=== PATIENT | male | born 1945 | race Hispanic/Latino ===

== ENCOUNTER 2019-01-10 11:57 | Observation (INO) | payer MEDICARE ==
[~2019-01-10] VITALS: Ht 154.4 cm; Wt 72.6 kg
--- OUTSIDE RECORDS SUMMARY | 2019-01-10 12:00 | XMS REPORT | Clinical Summary ---
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 Active clopidogrel (PLAVIX) 75 Take 75 mg by 0 mg tablet mouth daily. Active Problems Problem Noted Date Peripheral arterial disease 07/11/2016 Ulcer of left great toe due to diabetes mellitus 04/04/2016 Cellulitis of right lower extremity 03/19/2016 Neuropathy 03/19/2016 Diabetes mellitus HTN (hypertension) Wound eschar of foot Chronic renal failure HLD (hyperlipidemia) Anemia BPH (benign prostatic hyperplasia) Acid reflux Immunizations Name Dates Previously Given Next Due FLUCELVAX QUAD PF (0.5mL 04/30/2016 syringe) Pneumococcal Conjugate 04/30/2016 13-Valent Family History Medical History Relation Name Comments Diabetes Brother No Known Problems Father Diabetes Mother Diabetes Sister Relation Name Status Comments Brother Father Mother Sister Social History Date Tobacco Use Types Packs/Day Years Used Quit: 2000 Former Smoker 1 40 Alcohol Use Drinks/Week oz/Week Comments Yes 6 Cans of 3.6 18/week or more beer Sex Assigned at Date Recorded Not on file Industry Job Start Date Occupation Not on file Not on file Not on file Travel End Travel History Travel Start No recent travel history available. Last Filed Vital Signs Not on file Plan of Treatment Health Maintenance Due Date Last Done Comments DIABETIC RETINAL EYE EXAM 1945 SHINGLES VACCINES (#1) 12/13/1993 PNEUMOCOCCAL 12/13/2008 POLYSACCHARIDE VACCINE AGE 65 AND OVER DIABETIC FOOT EXAM 03/20/2017 03/20/2016, 03/20/2016 65+ PNEUMOCOCCAL VACCINE 04/30/2017 04/30/2016 (2 of 2 - PPSV23) INFLUENZA VACCINE 03/12/2019 04/30/2016 COLON CANCER SCREENING 04/05/2026 04/05/2016 Implants Device Identifier Shelf Expiration Date Model / Serial / Lot Implanted Type Area Manufactur er 06/12/2018 [id number] / / [id number] Elite Single-Vial Spy Kit, Accessorie N/A: N/A NOVADAQ [id number] - Implanted: Qty: 1 on 07/04/2016 by Suri Chan MD onal 03/11/2018 [id number] / / [id number] Device Vasclr Clsr Baln Cath 10ml Cardiovasc N/A: N/A CARDINAL Lkng Syr 6fr 7fr Mynxgrip [facility] [id number] Implants Implanted: 03/26/2016 (Quantity not on file) 04/25/2019 [id number] / / Catheter Garment Fitter Balloon Advance 14lp Surgical N/A: N/A COOK 2.5mm X 20cm X 170cm - [id number] Implants; PERIPHERAL Implanted: Qty: 1 on 07/04/2016 by Expanders; Suri Chan MD Extenders; ON Surgical Wires 12/09/2018 [id number] / / Catheter Garment Fitter Balloon Advance 14lp Surgical N/A: N/A COOK 2.5mm X 6cm X 170cm - [id number] Implants; PERIPHERAL Implanted: Qty: 1 on 07/04/2016 by Expanders; Suri Chan MD Extenders; ON Surgical Wires 11/29/2016 [id number] / / [id number] Stent Zilver Drug Eluted 6fr 7 X Surgical N/A: N/A COOK 100mm .035in - [id number] Stents PERIPHERAL Implanted: Qty: 1 on 03/26/2016 by Suri Chan MD ON 12/04/2016 [id number] / / [id number] Stent Zilver Drug Eluted 6fr 6 X Surgical N/A: N/A COOK 80mm 0.035in - [id number] Stents PERIPHERAL Implanted: Qty: 1 on 03/26/2016 by Suri Chan MD ON 12/20/2016 [id number] / / [id number] Stent Zilver Drug Eluted 6fr 7 X Surgical N/A: N/A COOK 40mm .035in - [id number] Stents PERIPHERAL Implanted: Qty: 1 on 03/26/2016 by Suri Chan MD ON 11/22/2016 [id number] / / [id number] Stent Zilver Drug Eluted 6fr 6 X Surgical N/A: N/A COOK 100mm .035in - [id number] Stents PERIPHERAL Implanted: 07/04/2016 (Quantity not INTERVENTI on file) ON 11/22/2016 [id number] / / [id number] Stent Zilver Drug Eluted 6fr 6 X Surgical N/A: N/A COOK 100mm .035in - [id number] Stents PERIPHERAL Implanted: 07/04/2016 (Quantity not INTERVENTI on file) ON 10/18/2020 [id number] / / [id number] Patch Vasclr Perph 0.8x8cm Vascular N/A: N/A CONSTANTINO Vascu-Guard - [id number] Graft BIOSCIENCE Implanted: 03/26/2016 (Quantity not on file) 08/11/2017 [id number] / / [id number] Matrix Wnd 2x2in Meshed 2lyr Strl - Vascular N/A: N/A INTEGRA [id number] Graft LIFESCIENC Implanted: Qty: 1 on 03/30/2016 by Edgar Echols DPM 10/18/2020 [id number] / / [id number] Patch Vasclr Perph 0.8x8cm Vascular N/A: N/A CONSTANTINO Vascu-Guard - [id number] Graft BIOSCIENCE Implanted: 07/11/2016 (Quantity not on file) Results Not on fileafter 01/09/2018 Insurance Type Payer Benefit Subscriber ID Effective Phone Address Plan / Dates Group [facility] MEDICARE AARP xxxxxxxxx [id number] MEDICARE resent COMPLETE [facility] Advance Directives Patient has advance care planning documents on file. For more information, terese e contact: Derrek Leung [address] [place] [address]
--- OUTSIDE RECORDS SUMMARY | 2019-01-10 12:01 | XMS REPORT | Summary of Care ---
Author Author [facility] Organization [facility] Address Unknown Phone Unavailable Encounter [facility] [place]) [id number] Date(s): 10/04/17 - 10/05/17 [facility] [address], [address] [place], [place] [id number]- [phone] Vital Signs No data available for this section Problem List Condition Effective Dates Status Health Status Informant Anemia of chronic Active renal failure(Confirmed) Physical Active debility(Confirmed) Benign hypertension Active with chronic kidney disease, stage IV(Confirmed) Chronic kidney Active disease stage 4(Confirmed) Closed fracture of Active right hip(Confirmed) Diabetic ulcer of Active right foot(Confirmed) History of fracture Active of femur(Confirmed) S/P ORIF (open Active reduction internal fixation) fracture(Confirmed) Status post right Active hip replacement(Confirme d) Hypercholesterolemia Active (Confirmed) MRSA of the 10/05/11 Active sputum(Confirmed)1, 2 Nocturia(Confirmed) Active Peripheral vascular Active disease(Confirmed) Thrombocytopenia(Con Active firmed) Screening for Active prostate cancer(Confirmed) Screening for Active diabetic retinopathy(Confirme d) Type 2 diabetes Active mellitus with stage 4 chronic kidney disease, without long-term current use of insulin(Confirmed) Unsteady Active gait(Confirmed) Urinary Active incontinence(Confirm ed) Vitamin D Active deficiency(Confirmed ) 1MRSA of the sputum, 10/05/11 2Problem added by Discern Expert. Allergies, Adverse Reactions, Alerts Substance Reaction Severity Status NKDA Active Medications atorvastatin 40 mg oral tablet 40 mg=1 tab, PO, Bedtime, # 90 tab, 0 Refill(s), Pharmacy: [id number] Start Date: 10/04/17 Stop Date: 01/02/18 Status: Ordered clopidogrel 75 mg oral tablet 75 mg=1 tab, PO, Daily, # 90 tab, 0 Refill(s), Pharmacy: [id number] Start Date: 10/04/17 Stop Date: 01/02/18 Status: Ordered Results No data available for this section Immunizations Given and Recorded Vaccine Date Status Refusal Reason Hx influenza vaccine-unspecified1 03/19/16 Recorded pneumococcal 23-valent vaccine2 09/15/15 Given pneumococcal 23-valent vaccine 09/30/11 Given influenza virus vaccine, inactivated 09/30/11 Given Not Given Vaccine Date Status Refusal Reason pneumococcal 23-valent vaccine 01/19/16 Not Given Patient Refuses 1Location History: At [facility] 2Result Comment: [id number] Procedures Procedure Date Related Diagnosis Body Site Status Comprehensive eye examination1 10/24/16 Completed Insertion of stent into femoral artery2 07/04/16 Completed Amputation great toe3 03/2016 Completed Endovascular insertion of stent4 03/2016 Completed Open reduction of fracture of femur with 01/19/16 Completed internal fixation5 Total replacement of right hip joint 08/01/15 Completed Screening colonoscopy 2014 Completed Appendectomy Completed 1no retinopathy (Murphy Alexandra OD) 2Zilver PTX drug-eluting periheral stent, right femoral artery [facility] 3Left foot ([facility]) 4Left leg ([facility]) 51. Hardware removal, right femur distal interlocking bolt. 2. Open reduction internal fixation, right periprosthetic femur fracture. Social History Social History Type Response Substance Abuse Use: None. Exercise Exercise duration: 45. Exercise frequency: 3-4 times/week. Exercise type: Walking.1 Employment/School Status: Retired. 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 Alcohol Past, Type Beer. Frequency: 1-2 times per week. Last use: over 6 beers a day. Smoking Status Former smoker; Type: Cigarettes; Previous treatment: None; Exposure to Tobacco Smoke None; Cigarette Smoking Last 365 Days No; Reg Smoking Cessation Counseling No; Tobacco use per day: 5; Stopped at age: 49; 2 entered on: 03/08/17 1Not at the moment due to recent hip surgery. 2Used to smoke 2 PPW. Quit 20 years ago. Assessment and Plan No data available for this section
--- OUTSIDE RECORDS SUMMARY | 2019-01-10 12:01 | XMS REPORT | Continuity of Care Document ---
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 Medical [facility] Anemia of chronic renal failure Active Problem 10/28/2018 [facility] Physical debility Active Problem 10/28/2018 [facility] Benign hypertension with chronic kidney disease, stage IV Active Problem 10/28/2018 [facility] Chronic kidney disease stage 4 Active Problem 10/28/2018 [facility] Closed fracture of right hip Active Problem 10/28/2018 [facility] Diabetic ulcer of right foot Active Problem 10/28/2018 [facility] History of fracture of femur Active Problem 10/28/2018 [facility] S/P ORIF fracture(<span [id number]</span>) Active Problem 10/28/2018 [facility] Status post right hip replacement Active Problem 10/28/2018 [facility] Hypercholesterolemia Active Problem 10/28/2018 [facility] Nocturia Active Problem 10/28/2018 [facility] Peripheral vascular disease Active Problem 10/28/2018 [facility] Thrombocytopenia Active Problem 10/28/2018 [facility] Screening for diabetic retinopathy Active Problem 10/28/2018 [facility] Type 2 diabetes mellitus with stage 4 chronic kidney disease, without long-term current use of insulin Active Problem 10/28/2018 [facility] Unsteady gait Active Problem 10/28/2018 [facility] Urinary incontinence Active Problem 10/28/2018 [facility] Vitamin D deficiency Active Problem 10/28/2018 [facility] Screening for prostate cancer Active Problem 01/11/2018 [facility] Diabetes mellitus Resolved Problem 01/28/2016 [facility] Hypertension Resolved Problem 01/28/2016 [facility] Renal disease Resolved Problem 01/28/2016 [facility] Type 2 diabetes mellitus with renal manifestations, controlled Active Problem 01/28/2016 [facility] UNSP FRACTURE OF UNSP FEMUR, INIT ENCNTR Active [facility] Medications Medication Details Route Status Patient Instructions Ordering Provider Order Date Source tamsulosin 0.4 mg oral capsule 0.4 mg=1 cap, PO, Daily, # 90 cap, 1 Refill(s), Pharmacy: [facility]/pharmacy #[id number] Active 04/02/2018 [facility] clopidogrel 75 mg oral tablet 75 mg=1 tab, PO, Daily, # 90 tab, 0 Refill(s), [id number] atorvastatin 40 mg oral tablet 40 mg=1 tab, PO, Bedtime, # 90 tab, 0 Refill(s), Pharmacy: [facility]/pharmacy #[id number] Active 10/04/2017 [facility] enoxaparin 40 mg/0.4 mL subcutaneous solution 40 mg=0.4 mL, SUB-Q, Daily, X 7 day, # 3 mL, 0 Refill(s), other Active 01/25/2016 [facility] Reglan 10 mg, 2 mL, Route: IVP, Drug form: INJ, Q6H, Dosing Weight 68.182, kg, Start date: 01/24/16 18:00:00 CDT, Duration: 30 day, Stop date: 02/23/16 15:00:00 CDTNotes: (Same as: Reglan) No Longer Active 01/24/2016 [facility] Menthol 0.0044 MG/MG / Zinc Oxide 0.2 MG/MG Topical Ointment [Calmoseptine Ointment] 1 appl, Route: TOP, Q12H, Drug form: OINT, Start date: 01/24/16 13:30:00 CDT, Duration: 30 day, Stop date: 02/23/16 9:00:00 CDTNotes: (Same as: Calmoseptine) No Longer Active 01/24/2016 [facility] metoprolol tartrate 25 mg oral tablet 12.5 mg=0.5 tab, PO, Q12H, 0 Refill(s) Active 01/24/2016 [facility] Menthol 0.0044 MG/MG / Zinc Oxide 0.2 MG/MG Topical Ointment [Calmoseptine Ointment] 1 appl, TOP, Q12H, 0 Refill(s) Active 01/24/2016 [facility] Docusate Sodium 100 MG Oral Capsule [Colace] 100 mg=1 cap, PO, BID, 0 Refill(s) Active 01/24/2016 [facility] acetaminophen 325 mg oral tablet 650 mg=2 tab, PO, Q4H, PRN Pain 1-3/Temp > 100.4 F, 0 Refill(s) Active 01/24/2016 [facility] Acetaminophen 325 MG / Hydrocodone Bitartrate 5 MG Oral Tablet 2 tab, PO, Q4H, PRN Pain Score 7-10, 0 Refill(s) Active 01/24/2016 [facility] tamsulosin 0.4 mg oral capsule 0.8 mg=2 cap, PO, Daily, 0 Refill(s) Active 01/24/2016 [facility] prochlorperazine 10 mg oral tablet 10 mg=1 tab, PO, TID, PRN as needed for nausea/vomiting, X 10 day, # 30 tab, 0 Refill(s) Active 01/24/2016 [facility] sodium chloride 0.9% INJ 250 mL 250 mL, Rate: outbound call center representative for use with blood product administration, Dosing Weight 68.182, kg, Route: IV, Total Volume: 250, Start Date: 01/24/16 12:31:00 CDT, Duration: 1 doses or times, Stop date: 01/25/16 12:30:00 CDT, Replace Every: 24 hr No Longer Active 01/24/2016 [facility] Lopressor 12.5 mg, 1 tab, Route: PO, Drug form: TAB, Q12H, Dosing Weight 68.182, kg, Start date: 01/24/16 0:00:00 CDT, Duration: 30 day, Stop date: 02/22/16 21:00:00 CDTNotes: (Same as: Lopressor) 12.5mg=1/4 X 50 mg tab. No Longer Active 01/24/2016 [facility] metoprolol tartrate 12.5 mg, 1 tab, Route: PO, Drug form: TAB, Q12H, Dosing Weight 68.182, kg, Start date: 01/23/16 12:00:00 CDT, Duration: 30 day, Stop date: 02/22/16 9:00:00 CDTNotes: (Same as: Lopressor) 12.5mg=1/4 X 50 mg tab. Inactive 01/23/2016 [facility] remove patch 1 patch, Route: TOP, Drug form: ERFILM, ONCE, Start date: 01/23/16 11:07:00 CDT, Stop date: 01/23/16 11:07:00 CDT Inactive 01/23/2016 [facility] remove patch 1 patch, Route: TOP, Drug form: ERFILM, Q72H, Start date: 01/23/16 11:00:00 CDT, Duration: 30 day, Stop date: 02/19/16 11:00:00 CDTNotes: Remove old patch before application of new patch. Inactive 01/23/2016 [facility] Reglan 10 mg, 2 mL, Route: IVP, Drug form: INJ, Q6H, Dosing Weight 68.182, kg, PRN Nausea & Vomiting, Start date: 01/21/16 17:10:00 CDT, Duration: 30 day, Stop date: 02/20/16 17:09:00 CDTNotes: (Same as: Reglan) No Longer Active 01/21/2016 [facility] Prochlorperazine 5 mg, 1 mL, Route: IV, Drug form: INJ, Q6H, Dosing Weight 68.182, kg, PRN Nausea & Vomiting, Start date: 01/21/16 10:48:00 CDT, Duration: 30 day, Stop date: 02/20/16 10:47:00 CDT, ..Notes: (Same as: Compazine) No Longer Active 01/21/2016 [facility] sodium chloride 0.9% INJ 250 mL 250 mL, Rate: outbound call center representative for use with blood product administration, Dosing Weight 68.182, kg, Route: IV, Total Volume: 250, Start Date: 01/21/16 8:08:00 CDT, Duration: 30 day, Stop date: 02/20/16 8:07:00 CDT, Replace Every: 24 hr No Longer Active 01/21/2016 [facility] Zofran 4 mg, 2 mL, Route: IVP, Drug form: INJ, ONCE, Dosing Weight 68.182, kg, Start date: 01/20/16 10:37:00 CDT, Stop date: 01/20/16 10:37:00 CDTNotes: (Same as: Zofran) MEDICATION WASTE Product Size: 4 mg Product Wasted: ___ mg Inactive 01/20/2016 [facility] Sodium Chloride 0.154 MEQ/ML Injectable Solution 500 mL, 500 ml/hr, Infuse Over: 1 hr, Route: IV, 500, Drug form: INJ, ONCE, Priority: STAT, Dosing Weight 68.182 kg, Start date: 01/20/16 9:00:00 CDT, Duration: 1 doses or times, Stop date: 01/20/16 9:00:00 CDT Inactive 01/20/2016 [facility] 72 HR Scopolamine 0.0139 MG/HR Transdermal Patch 1 patch, Route: TOP, Drug Form: ERFILM, Dosing Weight 68.182, kg, Q72H, Start date: 01/20/16 6:00:00 CDT, Duration: 30 day, Stop date: 02/16/16 11:00:00 CDTNotes: Change patch every 72 hours (Same as: Transderm-Scop) No Longer Active 01/20/2016 [facility] Ancef + sodium chloride 0.9% INJ 100 mL 2 gm, Route: IVPB, Q8H, Dosing Weight 68.182, kg, Start date: 01/19/16 21:00:00 CDT, Duration: 1 day, Stop date: 01/20/16 13:00:00 CDTNotes: (Same As: Ancef, Kefzol) MEDICATION WASTE Product Size: 1000 mg Product Wasted: ___ mg No Longer Active 01/20/2016 [facility] Cefazolin 2 gm, Route: IVP, ONCE, Dosing Weight 68.182, kg, Start date: 01/19/16 15:15:00 CDT, Stop date: 01/19/16 15:15:00 CDT Inactive 01/19/2016 [facility] Losartan 25 mg, PO, Daily, 0 Refill(s) Active 01/19/2016 [facility] pneumococcal capsular polysaccharide type 1 vaccine / pneumococcal capsular polysaccharide type 10A vaccine / pneumococcal capsular polysaccharide type 11A vaccine / pneumococcal capsular polysaccharide type 12F vaccine / pneumococcal capsular polysacchar 0.5 mL, Route: IM, Drug Form: INJ, Daily, Start date: 01/19/16 9:00:00 CDT, Duration: 1 doses or times, Stop date: 01/19/16 9:00:00 CDTNotes: (Same as: Pneumovax 23) Refrigerate Inactive 01/19/2016 [facility] Calcium Gluconate 2,000 mg, 20 mL, Route: IVPB, ONCE, Dosing Weight 68.182, kg, Start date: 01/19/16 8:36:00 CDT, Stop date: 01/19/16 8:36:00 CDTNotes: WASTE: F/P - Sink; E - Municipal Trash Bin Inactive 01/19/2016 [facility] Kayexalate 15 gm, 60 mL, Route: PO, Drug form: SUSP, ONCE, Dosing Weight 68.182, kg, Start date: 01/19/16 8:36:00 CDT, Stop date: 01/19/16 8:36:00 CDTNotes: (sodium polystyrene sulfonate 15 gm/60 ml CARROLL) Shake well before use. (Same as: Kayexalate, SPS) Inactive 01/19/2016 [facility] sodium chloride 0.9% INJ 250 mL 250 mL, Rate: outbound call center representative for use with blood product administration, Dosing Weight 68.182, kg, Route: IV, Total Volume: 250, Start Date: 01/19/16 8:35:00 CDT, Duration: 30 day, Stop date: 02/18/16 8:34:00 CDT, Replace Every: 24 hr No Longer Active 01/19/2016 [facility] sodium chloride 0.9% 1000 ml INJ 1,000 mL 1,000 mL, Rate: 100 ml/hr, Infuse over: 10 hr, Route: IV, Dosing Weight 68.182 kg, Total Volume: 1,000, Start date: 01/19/16 8:34:00 CDT, Stop date: 02/18/16 8:33:00 CDT No Longer Active 01/19/2016 [facility] atorvastatin 40 mg, 1 tab, Route: PO, Drug form: TAB, Bedtime, Dosing Weight 60.455, kg, Start date: 01/18/16 21:00:00 CDT, Duration: 30 day, Stop date: 02/16/16 21:00:00 CDTNotes: (Same as: Lipitor) No Longer Active 01/19/2016 [facility] tamsulosin 0.8 mg, 2 cap, Route: PO, Drug form: CAP, Daily, Dosing Weight 60.455, kg, Start date: 01/18/16 9:00:00 CDT, Stop date: 02/16/16 9:00:00 CDTNotes: (Same As: Flomax) "Do Not Crush" No Longer Active 01/18/2016 [facility] 24 HR Nifedipine 60 MG Extended Release Tablet 60 mg, 1 tab, Route: PO, Drug form: ERTAB, Daily, Dosing Weight 60.455, kg, Start date: 01/18/16 9:00:00 CDT, Duration: 30 day, Stop date: 02/16/16 9:00:00 CDTNotes: (Same as: Adalat CC, Procardia XL) Give on empty stomach. Take 1 hour before or 2 hours after meal; "Avoid grapefruit and grapefruit juice". Do not crush No Longer Active 01/18/2016 [facility] Folic Acid 1 mg, 1 tab, Route: PO, Drug form: TAB, Daily, Dosing Weight 60.455, kg, Start date: 01/18/16 9:00:00 CDT, Duration: 30 day, Stop date: 02/16/16 9:00:00 CDTNotes: (Same as: Folvite) No Longer Active 01/18/2016 [facility] sennosides, SENIOR CARE 17.2 mg, 2 tab, Route: PO, Drug Form: TAB, Dosing Weight 60.455, kg, Daily, Start date: 01/18/16 9:00:00 CDT, Duration: 30 day, Stop date: 02/16/16 9:00:00 CDTNotes: (Same as: Senokot) Inactive 01/18/2016 [facility] Docusate Sodium 100 MG Oral Capsule [Colace] 100 mg, 1 cap, Route: PO, Drug form: CAP, BID, Dosing Weight 60.455, kg, Start date: 01/18/16 9:00:00 CDT, Duration: 30 day, Stop date: 02/16/16 17:00:00 CDTNotes: (Same as: Colace) (Do Not Crush) No Longer Active 01/18/2016 [facility] heparin 5,000 unit, 1 mL, Route: SUB-Q, Drug form: INJ, Q8H, Dosing Weight 60.455, kg, Start date: 01/18/16 8:00:00 CDT, Duration: 30 day, Stop date: 02/17/16 0:00:00 CDTNotes: porcine heparin No Longer Active 01/18/2016 [facility] Hydralazine 5 mg, 0.25 mL, Route: IV, Drug form: INJ, Q4H, Dosing Weight 60.455, kg, PRN Elevated BP, Start date: 01/18/16 7:10:00 CDT, Duration: 30 day, Stop date: 02/17/16 7:09:00 CDT, Systolic Blood pressure gre ater than 160 mmHgNotes: (Same as: Apresoline) Push over 5 minutes No Longer Active 01/18/2016 [facility] Insulin regular 5 unit, 0.05 mL, Route: SUB-Q, Drug form: SOLN, TID-Before Meals, Dosing Weight 60.455, kg, PRN Blood Glucose Results, Start date: 01/18/16 6:59:00 CDT, Duration: 30 day, Stop date: 02/17/16 6:58:00 CDTNotes: (Same as: Humulin R) Roll in palms of hands gently; Do not shake vigorously. "single patient use only" (Restricted to patients requiring a dose > 60 units) WASTE: F/P - Black; E - Municipal Trash Bin Stable for 28 days at room temperature Expires in days from Date No Longer Active 01/18/2016 [facility] Glucagon 1 mg, Route: IM, Drug form: PDR/INJ, PRN, Dosing Weight 60.455, kg, PRN Blood Glucose Results, Start date: 01/18/16 6:59:00 CDT, Duration: 30 day, Stop date: 02/17/16 6:58:00 CDT No Longer Active 01/18/2016 [facility] Dextrose 50% Syringe 12.5 gm, 25 mL, Route: IVP, Drug Form: INJ, Dosing Weight 60.455, kg, PRN, PRN Blood Glucose Results, Start date: 01/18/16 6:59:00 CDT, Duration: 30 day, Stop date: 02/17/16 6:58:00 CDT No Longer Active 01/18/2016 [facility] Acetaminophen 650 mg, 2 tab, Route: PO, Drug form: TAB, Q4H, Dosing Weight 60.455, kg, PRN Pain 1-3/Temp > 100.4 F, Start date: 01/18/16 6:31:00 CDT, Duration: 30 day, Stop date: 02/17/16 6:30:00 CDTNotes: Do not exceed 4 gm/day. (Same as: Tylenol) No Longer Active 01/18/2016 [facility] Acetaminophen 325 MG / Hydrocodone Bitartrate 5 MG Oral Tablet 1 tab, Route: PO, Drug Form: TAB, Dosing Weight 60.455, kg, Q4H, PRN Pain Score 4-6, Start date: 01/18/16 6:31:00 CDT, Duration: 30 day, Stop date: 02/17/16 6:30:00 CDTNotes: (Same as: Gunlock 325/5) Do not exceed 4gm/day of acetaminophen. No Longer Active 01/18/2016 [facility] Morphine 2 mg, 1 mL, Route: IVP, Drug form: INJ, Q4H, Dosing Weight 60.455, kg, PRN Pain Score 7-10, Start date: 01/18/16 6:31:00 CDT, Duration: 30 day, Stop date: 02/17/16 6:30:00 CDTNotes: (Same as:MORPhine Sulfate) No Longer Active 01/18/2016 [facility] Ondansetron 4 mg, 2 mL, Route: IVP, Drug form: INJ, Q6H, Dosing Weight 60.455, kg, PRN Nausea & Vomiting, Start date: 01/18/16 6:31:00 CDT, Duration: 30 day, Stop date: 02/17/16 6:30:00 CDTNotes: (Same as: Zofran) MEDICATION WASTE Product Size: 4 mg Product Wasted: _0__ mg No Longer Active 01/18/2016 [facility] Sodium Chloride 0.154 MEQ/ML Injectable Solution 1,000 mL, 1,000 ml/hr, Infuse Over: 1 hr, Route: IV, 1,000, Drug form: INJ, ONCE, Priority: STAT, Dosing Weight 60.455 kg, Start date: 01/18/16 4:53:00 CDT, Duration: 1 doses or times, Stop date: 01/18/16 4:53:00 CDT Inactive 01/18/2016 [facility] Allergies, Adverse Reactions, Alerts Substance Category Reaction Severity Reaction type Status Date Reported Comments Source Immunizations Immunization Date Given Site Status Last Updated Comments Source Hx influenza vaccine-unspecified<sup>1</sup> 03/19/2016 completed [place] Location History: At [facility] pneumococcal 23-valent vaccine<sup>3</sup> 01/19/2016 Not Given [facility] pneumococcal 23-valent vaccine 01/19/2016 Not Given [facility] pneumococcal 23-valent vaccine<sup>2</sup> 09/15/2015 Left Deltoid completed [place] Result Comment: [id number] [facility] pneumococcal 23-valent vaccine<sup>1</sup> 09/15/2015 Left Deltoid completed [place] Result Comment: [id number] [facility] pneumococcal 23-valent vaccine 09/30/2011 Left Deltoid completed [facility] influenza virus vaccine, inactivated 09/30/2011 Right Deltoid completed [facility] Results Order Name Results Value Reference Range Date Interpretation Comments Source CHEM PANEL eGFR 28 mL/min/1.73m2 01/25/2016 Result Comment: The eGFR is calculated using the CKD-EPI formula. In most young, healthy individuals the eGFR will be >90 mL/min/1.73m2. The eGFR declines with age. An eGFR of 60-89 may be normal in some populations, particularly the elderly, for whom the CKD-EPI formula has not been extensively validated. Use of the eGFR is not recommended in the following populations: Individuals with unstable creatinine concentrations, including patients and those with serious co-morbid conditions. Patients with extremes in muscle mass or diet. The data above are obtained from the National Kidney Disease Education Program (NKDEP) which additionally recommends that when the eGFR is used in patients with extremes of body mass index for purposes of drug dosing, the eGFR should be multiplied by the estimated BMI. [facility] CHEM PANEL Sodium Lvl 140 meq/L 135 - 145 01/25/2016 [facility] CHEM PANEL Potassium Lvl 3.1 meq/L 3.5 - 5.1 01/25/2016 [facility] CHEM PANEL Glucose Lvl 121 mg/dL 70 - 99 01/25/2016 [facility] CHEM PANEL Creatinine Lvl 2.26 mg/dL 0.50 - 1.40 01/25/2016 [facility] CHEM PANEL BUN 43 mg/dL 7 - 22 01/25/2016 [facility] CHEM PANEL Chloride Lvl 115 meq/L 95 - 109 01/25/2016 [facility] CHEM PANEL Calcium Lvl 8.0 mg/dL 8.5 - 10.5 01/25/2016 [facility] CHEM PANEL CO2 15 meq/L 24 - 32 01/25/2016 [facility] CHEM PANEL AGAP 13.1 meq/L 10.0 - 20.0 01/25/2016 [facility] HEMATOLOGY PT 15.9 s 12.0 - 14.7 01/25/2016 [facility] HEMATOLOGY INR 1.24 0.85 - 1.17 01/25/2016 [facility] HEMATOLOGY PTT 39.9 s 22.9 - 35.8 01/25/2016 [facility] HEMATOLOGY MPV 7.0 fL 7.4 - 10.4 01/25/2016 [facility] HEMATOLOGY Hgb 8.3 g/dL 14.0 - 18.0 01/25/2016 [facility] HEMATOLOGY WBC 4.2 K/CMM 3.7 - 10.4 01/25/2016 [facility] HEMATOLOGY RBC 2.70 M/CMM 4.70 - 6.10 01/25/2016 [facility] HEMATOLOGY MCHC 32.9 g/dL 32.0 - 36.0 01/25/2016 [facility] HEMATOLOGY Platelet 166 K/CMM 133 - 450 01/25/2016 [facility] HEMATOLOGY Hct 25.1 % 42.0 - 54.0 01/25/2016 [facility] HEMATOLOGY MCV 93.0 fL 80.0 - 94.0 01/25/2016 [facility] HEMATOLOGY MCH 30.6 pg 27.0 - 31.0 01/25/2016 [facility] HEMATOLOGY RDW 15.5 % 11.5 - 14.5 01/25/2016 [facility] HEMATOLOGY Segs 59.0 % 45.0 - 75.0 01/25/2016 [facility] HEMATOLOGY Lymphocytes 21.3 % 20.0 - 40.0 01/25/2016 [facility] HEMATOLOGY Eosinophils # 0.1 K/CMM 0.0 - 0.5 01/25/2016 [facility] HEMATOLOGY Segs-Bands # 2.5 K/CMM 1.5 - 8.1 01/25/2016 [facility] HEMATOLOGY Lymphocytes # 0.9 K/CMM 1.0 - 5.5 01/25/2016 [facility] HEMATOLOGY Monocytes 17.1 % 2.0 - 12.0 01/25/2016 [facility] HEMATOLOGY Eosinophils 2.2 % 0.0 - 4.0 01/25/2016 [facility] HEMATOLOGY Basophils 0.4 % 0.0 - 1.0 01/25/2016 [facility] HEMATOLOGY Monocytes # 0.7 K/CMM 0.0 - 0.8 01/25/2016 [facility] BLOOD BANK RESULTS Antibody Scrn Negative (01/24/16 1:09 PM) 01/24/2016 [facility] BLOOD BANK RESULTS ABO/Rh O POS 01/24/2016 [facility] BLOOD BANK RESULTS RBC product Product available (01/24/16 12:31 PM) 01/24/2016 [facility] Abdomen AP DX Abdomen AP DX EXAM: XR ABDOMEN 1 VIEW DATE: 01/24/2016 1344 hours INDICATION: Abdominal distension ADDITIONAL INFORMATION: None. COMPARISON: CT chest, abdomen and pelvis without contrast 09/25/2011 TECHNIQUE: AP view of the abdomen. FINDINGS: Lines and tubes: None. Lower thorax: Hazy airspace opacities are identified in the lung bases. Bowel: Generalized moderate distention of the small and large bowel is identified. No abrupt change in bowel caliber concerning for obstruction is seen. Solid organs: No abnormal mass or organomegaly seen. No abnormal calcifications found. Bones: Numerous healed right-sided rib fractures are identified. A cephalomedullary huber and lateral plate with multiple interlocking screws are identified in the right femur. IMPRESSION: 1. Generalized moderate distention of the small and large bowel likely event sales representative of adynamic ileus. Recommend obtaining serial radiographs to monitor for resolution or progression. 2. Bibasilar subsegmental atelectasis. 01/24/2016 - - This report was dictated by a Novelty Maker/Fellow. I have personally reviewed the images as well as the Resident's interpretation and agree with the findings. Read by: Carlos Gerard MD Resident: Carlos Gerard MD Dictated Date/time: 01/24/16 14:05 Electronically Signed by: Julio C iLpscomb MD 01/24/16 16:32 FINAL REPORT [facility] ELECTROLYTES AGAP 15.5 meq/L 10.0 - 20.0 01/24/2016 [facility] ELECTROLYTES eGFR 29 mL/min/1.73m2 01/24/2016 Result Comment: The eGFR is calculated using the CKD-EPI formula. In most young, healthy individuals the eGFR will be >90 mL/min/1.73m2. The eGFR declines with age. An eGFR of 60-89 may be normal in some populations, particularly the elderly, for whom the CKD-EPI formula has not been extensively validated. Use of the eGFR is not recommended in the following populations: Individuals with unstable creatinine concentrations, including patients and those with serious co-morbid conditions. Patients with extremes in muscle mass or diet. The data above are obtained from the National Kidney Disease Education Program (NKDEP) which additionally recommends that when the eGFR is used in patients with extremes of body mass index for purposes of drug dosing, the eGFR should be multiplied by the estimated BMI. [facility] [facility] ELECTROLYTES Chloride Lvl 115 meq/L 95 - 109 01/24/2016 [facility] ELECTROLYTES Potassium Lvl 3.5 meq/L 3.5 - 5.1 01/24/2016 [facility] ELECTROLYTES Sodium Lvl 142 meq/L 135 - 145 01/24/2016 [facility] ELECTROLYTES Calcium Lvl 7.9 mg/dL 8.5 - 10.5 01/24/2016 [facility] ELECTROLYTES CO2 15 meq/L 24 - 32 01/24/2016 [facility] ELECTROLYTES BUN 43 mg/dL 7 - 22 01/24/2016 [facility] ELECTROLYTES Creatinine Lvl 2.20 mg/dL 0.50 - 1.40 01/24/2016 [facility] ELECTROLYTES Glucose Lvl 137 mg/dL 70 - 99 01/24/2016 [facility] HEMATOLOGY PTT 42.2 s 22.9 - 35.8 01/24/2016 [facility] HEMATOLOGY INR 1.21 0.85 - 1.17 01/24/2016 [facility] HEMATOLOGY PT 15.6 s 12.0 - 14.7 01/24/2016 [facility] HEMATOLOGY RBC 2.32 M/CMM 4.70 - 6.10 01/24/2016 [facility] HEMATOLOGY WBC 4.8 K/CMM 3.7 - 10.4 01/24/2016 [facility] HEMATOLOGY Hct 21.9 % 42.0 - 54.0 01/24/2016 [facility] HEMATOLOGY Hgb 7.5 g/dL 14.0 - 18.0 01/24/2016 [facility] HEMATOLOGY MCV 94.3 fL 80.0 - 94.0 01/24/2016 [facility] HEMATOLOGY MCH 32.5 pg 27.0 - 31.0 01/24/2016 [facility] HEMATOLOGY MCHC 34.5 g/dL 32.0 - 36.0 01/24/2016 [facility] HEMATOLOGY Platelet 164 K/CMM 133 - 450 01/24/2016 [facility] HEMATOLOGY RDW 16.4 % 11.5 - 14.5 01/24/2016 [facility] HEMATOLOGY MPV 7.2 fL 7.4 - 10.4 01/24/2016 [facility] HEMATOLOGY Monocytes # 0.6 K/CMM 0.0 - 0.8 01/24/2016 [facility] HEMATOLOGY Lymphocytes # 0.7 K/CMM 1.0 - 5.5 01/24/2016 [facility] HEMATOLOGY Eosinophils # 0.1 K/CMM 0.0 - 0.5 01/24/2016 [facility] HEMATOLOGY Segs-Bands # 3.4 K/CMM 1.5 - 8.1 01/24/2016 [facility] HEMATOLOGY Basophils 0.5 % 0.0 - 1.0 01/24/2016 [facility] HEMATOLOGY Segs 70.7 % 45.0 - 75.0 01/24/2016 [facility] HEMATOLOGY Monocytes 12.6 % 2.0 - 12.0 01/24/2016 [facility] HEMATOLOGY Lymphocytes 14.8 % 20.0 - 40.0 01/24/2016 [facility] HEMATOLOGY Eosinophils 1.4 % 0.0 - 4.0 01/24/2016 [facility] CHEM PANEL eGFR 29 mL/min/1.73m2 01/23/2016 Result Comment: The eGFR is calculated using the CKD-EPI formula. In most young, healthy individuals the eGFR will be >90 mL/min/1.73m2. The eGFR declines with age. An eGFR of 60-89 may be normal in some populations, particularly the elderly, for whom the CKD-EPI formula has not been extensively validated. Use of the eGFR is not recommended in the following populations: Individuals with unstable creatinine concentrations, including patients and those with serious co-morbid conditions. Patients with extremes in muscle mass or diet. The data above are obtained from the National Kidney Disease Education Program (NKDEP) which additionally recommends that when the eGFR is used in patients with extremes of body mass index for purposes of drug dosing, the eGFR should be multiplied by the estimated BMI. [facility] CHEM PANEL Calcium Lvl 8.0 mg/dL 8.5 - 10.5 01/23/2016 [facility] CHEM PANEL Glucose Lvl 145 mg/dL 70 - 99 01/23/2016 [facility] CHEM PANEL CO2 15 meq/L 24 - 32 01/23/2016 [facility] CHEM PANEL Sodium Lvl 145 meq/L 135 - 145 01/23/2016 [facility] CHEM PANEL Chloride Lvl 118 meq/L 95 - 109 01/23/2016 [facility] CHEM PANEL Potassium Lvl 3.5 meq/L 3.5 - 5.1 01/23/2016 [facility] CHEM PANEL BUN 42 mg/dL 7 - 22 01/23/2016 [facility] CHEM PANEL Creatinine Lvl 2.18 mg/dL 0.50 - 1.40 01/23/2016 [facility] CHEM PANEL AGAP 15.5 meq/L 10.0 - 20.0 01/23/2016 [facility] HEMATOLOGY D-Dimer 5.55 ug/mL FEU 01/23/2016 [facility] HEMATOLOGY Segs-Bands # 3.2 K/CMM 1.5 - 8.1 01/23/2016 [facility] HEMATOLOGY Lymphocytes # 1.0 K/CMM 1.0 - 5.5 01/23/2016 [facility] HEMATOLOGY Monocytes # 0.6 K/CMM 0.0 - 0.8 01/23/2016 [facility] HEMATOLOGY Eosinophils 0.8 % 0.0 - 4.0 01/23/2016 [facility] HEMATOLOGY Segs 66.5 % 45.0 - 75.0 01/23/2016 [facility] HEMATOLOGY Lymphocytes 20.5 % 20.0 - 40.0 01/23/2016 [facility] HEMATOLOGY Monocytes 11.8 % 2.0 - 12.0 01/23/2016 [facility] HEMATOLOGY Basophils 0.4 % 0.0 - 1.0 01/23/2016 [facility] HEMATOLOGY Platelet 116 K/CMM 133 - 450 01/23/2016 [facility] HEMATOLOGY RDW 15.9 % 11.5 - 14.5 01/23/2016 [facility] HEMATOLOGY Hgb 7.1 g/dL 14.0 - 18.0 01/23/2016 [facility] HEMATOLOGY Hct 21.3 % 42.0 - 54.0 01/23/2016 [facility] HEMATOLOGY MCV 90.9 fL 80.0 - 94.0 01/23/2016 [facility] HEMATOLOGY MPV 7.2 fL 7.4 - 10.4 01/23/2016 [facility] HEMATOLOGY MCH 30.3 pg 27.0 - 31.0 01/23/2016 [facility] HEMATOLOGY MCHC 33.3 g/dL 32.0 - 36.0 01/23/2016 [facility] HEMATOLOGY WBC 4.8 K/CMM 3.7 - 10.4 01/23/2016 [facility] HEMATOLOGY RBC 2.35 M/CMM 4.70 - 6.10 01/23/2016 [facility] CHEM PANEL Globulin 3.4 g/dL 2.0 - 4.0 01/22/2016 [facility] CHEM PANEL B/C Ratio 18 6 - 25 01/22/2016 [facility] CHEM PANEL A/G Ratio 0.7 0.7 - 1.6 01/22/2016 [facility] CHEM PANEL AST 30 unit/L 0 - 37 01/22/2016 [facility] CHEM PANEL Albumin Lvl 2.3 g/dL 3.5 - 5.0 01/22/2016 [facility] CHEM PANEL ALT 9 unit/L 0 - 65 01/22/2016 [facility] CHEM PANEL Total Protein 5.7 g/dL 6.4 - 8.4 01/22/2016 [facility] CHEM PANEL Bili Total 0.8 mg/dL 0.2 - 1.3 01/22/2016 [facility] CHEM PANEL Alk Phos 96 unit/L 39 - 136 01/22/2016 [facility] URINE AND STOOL UA Urobilinogen <=1.0 mg/dL 0.1 - 1.0 01/22/2016 [facility] URINE AND STOOL UA Sq Epi None Seen 01/22/2016 [facility] URINE AND STOOL UA WBC 2 /HPF 0 - 5 01/22/2016 [facility] URINE AND STOOL UA Leuk Est Negative (01/22/16 12:30 AM) Negative 01/22/2016 [facility] URINE AND STOOL UA Mucus Few /LPF None Seen /LPF 01/22/2016 [facility] URINE AND STOOL UA Bacteria Occasional /HPF None Seen /HPF 01/22/2016 [facility] URINE AND STOOL UA Bili Negative *NA* (01/22/16 12:30 AM) Negative 01/22/2016 [facility] URINE AND STOOL UA Nitrite Negative (01/22/16 12:30 AM) Negative 01/22/2016 [facility] URINE AND STOOL UA Blood Moderate *ABN* (01/22/16 12:30 AM) Negative 01/22/2016 [facility] URINE AND STOOL UA Protein 30 mg/dL Negative mg/dL 01/22/2016 [facility] URINE AND STOOL UA Ketones Negative mg/dL Negative mg/dL 01/22/2016 [facility] URINE AND STOOL UA Glucose 30 mg/dL Negative mg/dL 01/22/2016 [facility] URINE AND STOOL UA pH 5.5 5.0 - 8.0 01/22/2016 [facility] URINE AND STOOL UA Spec Grav 1.009 <=1.030 01/22/2016 [facility] URINE AND STOOL UA Turbidity Clear (01/22/16 12:30 AM) Clear 01/22/2016 [facility] URINE AND STOOL UA Color Light Yellow *NA* (01/22/16 12:30 AM) Yellow 01/22/2016 [facility] HEMATOLOGY D-Dimer 2.84 ug/mL FEU 01/22/2016 [facility] Chest 1view DX Chest 1view DX EXAM: XR CHEST 1 VIEW DATE: 01/21/2016 5:18 PM CDT INDICATION: Altered level of consciousness. FINDINGS: Comparison is made to an outside radiograph from 10/23/2011. The patient is rotated to the right, causing rightward shift of the heart and mediastinum. The thoracic aorta is tortuous and ectatic or dilated. There are aortic arch calcifications. Note is made of several old healed right-sided rib fracture. There is an old healed fracture of the surgical neck of the left humerus. Platelike atelectasis is seen in the left lung base. The lungs are otherwise relatively clear. No pleural effusions are identified. IMPRESSION: Left lower lobe platelike atelectasis. 01/21/2016 - - Read by: Jerica John MD Dictated Date/time: 01/22/16 13:39 Electronically Signed by: Jerica Jhon MD 01/22/16 14:03 FINAL REPORT [facility] BLOOD BANK RESULTS RBC product Product available (01/21/16 8:08 AM) 01/21/2016 [facility] HEMATOLOGY Basophils # 0.1 K/CMM 0.0 - 0.2 01/20/2016 [facility] Femur series DX Femur series DX EXAM: XR RIGHT FEMUR 2 VIEWS DATE: 01/19/2016 at 1736 hours INDICATION: POST OP COMPARISON: Femur x-ray dated 01/18/2016 at 0201 hours TECHNIQUE: AP and lateral radiographs of the right femur FINDINGS: Satisfactory alignment of the periprosthetic, right femoral mid shaft spiral fracture after plate and screw fixation. There is no evidence of hardware complication. No other fractures or malalignment are identified. A small amount of heterotopic calcification is present in the greater trochanter. Vascular atherosclerotic calcifications are identified. IMPRESSION: Satisfactory alignment of the right femoral periprosthetic spiral fracture after plate and screw fixation. 01/19/2016 - - This report was dictated by a Novelty Maker/Fellow. I have personally reviewed the images as well as the Resident's interpretation and agree with the findings. Read by: Froilan Mosqueda MD Resident: Froilan Mosqueda MD Dictated Date/time: 01/20/16 08:42 Electronically Signed by: Elder Curiel MD 01/20/16 13:13 FINAL REPORT [facility] BLOOD BANK RESULTS RBC product Product available (01/19/16 8:35 AM) 01/19/2016 [facility] CHEM PANEL Magnesium Lvl 2.1 mg/dL 1.8 - 2.4 01/19/2016 [facility] HEMATOLOGY Eosinophils # 0.1 K/CMM 0.0 - 0.5 01/19/2016 [facility] CHEM PANEL Vitamin D 1,25 (OH)2 Total 14 pg/mL 18 - 72 01/19/2016 [facility] CHEM PANEL Vitamin D3 1,25 (OH)2 null 01/19/2016 [facility] CHEM PANEL Vitamin D2 1,25 (OH)2 14 pg/mL 01/19/2016 Result Comment: Vitamin D2, 1,25 (OH)2: Reference ranges are established for total 1,25-dihydroxy vitamin D. Values for subcomponents D2 (derived from plant or fungal sources) and D3 (derived from human or animal sources) are provided for informational purposes only. This test(s) was developed and its performance characteristics have been determined by [facility], [place], [place]. Performance characteristics refer to the analytical performance of the test. Test Performed at: [employer] [facility], [address] [place] [id number] Robert Good MD, FCAP [facility] CHEM PANEL Vitamin D, 25-OH, Total 27 ng/mL 30 - 100 01/19/2016 [facility] BLOOD BANK RESULTS ABO/Rh O POS 01/18/2016 [facility] BLOOD BANK RESULTS Antibody Scrn Negative (01/18/16 5:33 AM) 01/18/2016 [facility] HEMATOLOGY PT 16.1 s 12.0 - 14.7 01/18/2016 [facility] HEMATOLOGY PTT 40.0 s 22.9 - 35.8 01/18/2016 [facility] HEMATOLOGY INR 1.26 0.85 - 1.17 01/18/2016 [facility] CHEM PANEL A/G Ratio 0.9 0.7 - 1.6 01/18/2016 [facility] CHEM PANEL Globulin 3.8 g/dL 2.0 - 4.0 01/18/2016 [facility] CHEM PANEL B/C Ratio 18 6 - 25 01/18/2016 [facility] CHEM PANEL Total Protein 7.4 g/dL 6.4 - 8.4 01/18/2016 [facility] CHEM PANEL Albumin Lvl 3.6 g/dL 3.5 - 5.0 01/18/2016 [facility] CHEM PANEL AST 24 unit/L 0 - 37 01/18/2016 [facility] CHEM PANEL Alk Phos 121 unit/L 39 - 136 01/18/2016 [facility] CHEM PANEL ALT 31 unit/L 0 - 65 01/18/2016 [facility] CHEM PANEL Bili Total 0.2 mg/dL 0.2 - 1.3 01/18/2016 [facility] CHEM PANEL Phosphorus 4.3 mg/dL 2.5 - 4.5 01/18/2016 [facility] CHEM PANEL Magnesium Lvl 2.2 mg/dL 1.8 - 2.4 01/18/2016 [facility] Knee wo contrast CT Knee wo contrast CT EXAM: CT RIGHT KNEE WITHOUT CONTRAST , WITH 3-D DATE: 01/18/2016 3:55 AM CDT INDICATION: Pain from a fall COMPARISON: Right knee radiographs from the same day TECHNIQUE: Helical noncontrast CT of the right knee. Bone and soft tissue algorithm. Coronal, sagittal, and 3-D volume rendered reformats. FINDINGS: The comminuted and displaced spiral fracture of the distal femoral metadiaphysis is reidentified. There is no extension of the fracture to the articular surface. The distal interlocking screw of the intramedullary femoral huber is well seated with no hardware fracture. Mildly displaced adjacent bone fragment measures 12 x 24 mm on series 3 image 46. It is displaced laterally by 5.5 mm. There is advanced degenerative change of the medial tibiofemoral compartment of the knee with evidence of bone on bone articulation. Marginal osteophyte formation in all 3 compartments. Chondrocalcinosis is present in the medial and lateral tibiofemoral compartments. Extensive arterial ATHEROSCLEROSIS IS PRESENT. Small to moderate joint effusion. Mild soft tissue stranding is present around the knee circumferentially. IMPRESSION: 1. No articular surface extension of the comminuted spiral distal femoral metadiaphyseal fracture. 2. Partially visualized intramedullary huber and distal interlocking screw without hardware fracture. 3. Tricompartmental osteoarthrosis, with significant joint space narrowing of the medial tibiofemoral compartment. Chondrocalcinosis. 4. Small moderate knee joint effusion. 5. Extensive arterial atherosclerosis. 01/18/2016 - - This report was dictated by a Novelty Maker/Fellow. I have personally reviewed the images as well as the Resident's interpretation and agree with the findings. Read by: Lalito Baca MD Resident: Lalito Baca MD Dictated Date/time: 01/18/16 05:51 Electronically Signed by: Jorge Batista 01/18/16 06:21 FINAL REPORT [facility] Hip 2/3 views uni DX Hip 2/3 views uni DX EXAM: XR RIGHT HIP 1 VIEW AND AP PELVIS EXAM: XR RIGHT FEMUR 2 VIEWS EXAM: XR RIGHT KNEE 3 VIEWS DATE: 01/18/2016 2:32 AM CDT INDICATION: trauma COMPARISON: Right hip radiographs October 23, 2011. TECHNIQUE: A frog-leg lateral radiograph of the right hip and a single AP radiograph of the pelvis. 2 views right femur. 3 views right knee. FINDINGS: There is intramedullary huber fixation of the femur with a hip screw and a distal interlocking screw, without hardware fracture. There is a obliquely oriented, spiral, comminuted fracture of the mid to distal femoral diaphysis which extends into the metaphysis along the lateral margin of the distal femur. There is 1.3 cm of anterior displacement, 2.2 cm lateral displacement and up to 2 cm of fragment diastasis as seen on the frontal view. Surrounding soft tissue swelling seen. The femoral fracture does not involve the articular surfaces of the knee joint. There are there any joint degenerative changes with joint space narrowing of medial tibiofemoral compartment and marginal osteophyte formation. Marginal osteophytes also noted in the patellofemoral compartment. There is a small knee joint effusion. The right hip joint alignment is normal. Heterotopic ossification is seen near the joint space laterally and inferomedially. No acute fracture is observed at the right hip or elsewhere in the pelvis. Extensive vascular calcifications are seen. IMPRESSION: 1. Acute displaced, spiral, comminuted fracture of the mid to distal right femoral diaphysis. 2. No acute fracture or dislocation of the right knee or hip. 3. Small knee joint effusion. 01/18/2016 - - This report was dictated by a Novelty Maker/Fellow. I have personally reviewed the images as well as the Resident's interpretation and agree with the findings. Read by: Lalito Baca MD Resident: Lalito Baca MD Dictated Date/time: 01/18/16 03:25 Electronically Signed by: Jorge Batista 01/18/16 04:53 FINAL REPORT [facility] Femur series DX Femur series DX EXAM: XR RIGHT HIP 1 VIEW AND AP PELVIS EXAM: XR RIGHT FEMUR 2 VIEWS EXAM: XR RIGHT KNEE 3 VIEWS DATE: 01/18/2016 2:32 AM CDT INDICATION: trauma COMPARISON: Right hip radiographs October 23, 2011. TECHNIQUE: A frog-leg lateral radiograph of the right hip and a single AP radiograph of the pelvis. 2 views right femur. 3 views right knee. FINDINGS: There is intramedullary huber fixation of the femur with a hip screw and a distal interlocking screw, without hardware fracture. There is a obliquely oriented, spiral, comminuted fracture of the mid to distal femoral diaphysis which extends into the metaphysis along the lateral margin of the distal femur. There is 1.3 cm of anterior displacement, 2.2 cm lateral displacement and up to 2 cm of fragment diastasis as seen on the frontal view. Surrounding soft tissue swelling seen. The femoral fracture does not involve the articular surfaces of the knee joint. There are there any joint degenerative changes with joint space narrowing of medial tibiofemoral compartment and marginal osteophyte formation. Marginal osteophytes also noted in the patellofemoral compartment. There is a small knee joint effusion. The right hip joint alignment is normal. Heterotopic ossification is seen near the joint space laterally and inferomedially. No acute fracture is observed at the right hip or elsewhere in the pelvis. Extensive vascular calcifications are seen. IMPRESSION: 1. Acute displaced, spiral, comminuted fracture of the mid to distal right femoral diaphysis. 2. No acute fracture or dislocation of the right knee or hip. 3. Small knee joint effusion. 01/18/2016 - - This report was dictated by a Novelty Maker/Fellow. I have personally reviewed the images as well as the Resident's interpretation and agree with the findings. Read by: Lalito Baca MD Resident: Lalito Baca MD Dictated Date/time: 01/18/16 03:25 Electronically Signed by: Jorge Batista 01/18/16 04:53 FINAL REPORT [facility] Knee 3 views DX Knee 3 views DX EXAM: XR RIGHT HIP 1 VIEW AND AP PELVIS EXAM: XR RIGHT FEMUR 2 VIEWS EXAM: XR RIGHT KNEE 3 VIEWS DATE: 01/18/2016 2:32 AM CDT INDICATION: trauma COMPARISON: Right hip radiographs October 23, 2011. TECHNIQUE: A frog-leg lateral radiograph of the right hip and a single AP radiograph of the pelvis. 2 views right femur. 3 views right knee. FINDINGS: There is intramedullary huber fixation of the femur with a hip screw and a distal interlocking screw, without hardware fracture. There is a obliquely oriented, spiral, comminuted fracture of the mid to distal femoral diaphysis which extends into the metaphysis along the lateral margin of the distal femur. There is 1.3 cm of anterior displacement, 2.2 cm lateral displacement and up to 2 cm of fragment diastasis as seen on the frontal view. Surrounding soft tissue swelling seen. The femoral fracture does not involve the articular surfaces of the knee joint. There are there any joint degenerative changes with joint space narrowing of medial tibiofemoral compartment and marginal osteophyte formation. Marginal osteophytes also noted in the patellofemoral compartment. There is a small knee joint effusion. The right hip joint alignment is normal. Heterotopic ossification is seen near the joint space laterally and inferomedially. No acute fracture is observed at the right hip or elsewhere in the pelvis. Extensive vascular calcifications are seen. IMPRESSION: 1. Acute displaced, spiral, comminuted fracture of the mid to distal right femoral diaphysis. 2. No acute fracture or dislocation of the right knee or hip. 3. Small knee joint effusion. 01/18/2016 - - This report was dictated by a Novelty Maker/Fellow. I have personally reviewed the images as well as the Resident's interpretation and agree with the findings. Read by: Lalito Baca MD Resident: Lalito Baca MD Dictated Date/time: 01/18/16 03:25 Electronically Signed by: Jorge Batista 01/18/16 04:53 FINAL REPORT [facility] Vital Signs Vital Sign Value Date Comments Source BMI Calculated 21.51 04/02/2018 [facility] Height 175.26 cm 04/02/2018 [facility] Weight 66.08 04/02/2018 [facility] Systolic (mm Hg) 152 04/02/2018 [facility] Diastolic (mm Hg) 82 04/02/2018 [facility] Heart Rate 74 04/02/2018 [facility] Respitory Rate 16 04/02/2018 [facility] Temperature Oral (F) 97.7 F 04/02/2018 [facility] Systolic (mm Hg) 138 01/25/2016 [facility] Diastolic (mm Hg) 79 01/25/2016 [facility] Respitory Rate 18 01/25/2016 [facility] Temperature Oral (F) 98.8 F 01/25/2016 [facility] Heart Rate 99 01/25/2016 [facility] Heart Rate 90 01/25/2016 [facility] Respitory Rate 18 01/25/2016 [facility] Systolic (mm Hg) 111 01/25/2016 [facility] Diastolic (mm Hg) 70 01/25/2016 [facility] Temperature Oral (F) 98.8 F 01/25/2016 [facility] Systolic (mm Hg) 115 01/25/2016 [facility] Diastolic (mm Hg) 63 01/25/2016 [facility] Heart Rate 96 01/25/2016 [facility] Respitory Rate 18 01/25/2016 [facility] Temperature Oral (F) 99.0 F 01/25/2016 [facility] BMI Calculated 23.54 01/18/2016 [facility] Weight 68.182 01/18/2016 [facility] Height 170.18 cm 01/18/2016 [facility] Encounters Location Location Details Encounter Type Encounter Number Reason For Visit Attending Provider ADM Date DC Date Status Source Outpatient [id number] ROSALBA ALDRIDGE 09/30/2015 Active [facility] Inpatient [id number] Margo Olmedo 01/18/2016 01/26/2016 [facility] Outpatient [id number] ROSALBA ALDRIDGE 01/26/2016 Active [facility] Outpatient [id number] ROSALBA ALDRIDGE 06/21/2016 Active [facility] Outpatient [id number] ROSALBA ALDRIDGE 08/02/2016 Active [facility] Outpatient [id number] ROSALBA ALDRIDGE 10/25/2016 Active [facility] Outpatient [id number] ROSALBA ALDRIDGE 01/25/2017 Active [facility] Outpatient [id number] ROSALBA ALDRIDGE 03/01/2017 Active [facility] Outpatient [id number] ROSALBA ALDRIDGE 03/08/2017 Active [facility] Outpatient [id number] ROSALBA ALDRIDGE 07/01/2017 Active [facility] Ambulatory Pre-Reg [id number] Rosalba Aldridge 07/01/2017 07/01/2017 [facility] Phone Message [id number] 10/04/2017 10/06/2017 [facility] Outpatient [id number] ROSALBA ALDRIDGE 04/02/2018 Active [facility] Outpatient [id number] Rosalba Aldridge 04/02/2018 04/03/2018 [facility] Phone Message [id number] 04/09/2018 04/11/2018 [facility] Procedures Procedure Code Date Perfomer Comments Source Comprehensive eye examination<sup>1</sup> [id number] 10/24/2016 no retinopathy (Murphy Alexandra OD) [facility] Insertion of stent into femoral artery<sup>2</sup> [id number] 07/04/2016 [place] PTX drug-eluting periheral stent, right femoral artery [facility] Amputation great toe<sup>3</sup> [id number] 03/12/2016 Left foot ([facility]) [facility] Endovascular insertion of stent<sup>4</sup> [id number] 03/12/2016 Left leg (Quaker) [facility] Open reduction of fracture of femur with internal fixation<sup>5</sup> [id number] 01/19/2016 1. Hardware removal, right femur distal interlocking bolt. 2. Open reduction internal fixation, right periprosthetic femur fracture. [facility] Total replacement of right hip joint [id number] 08/01/2015 [facility] Total replacement of right hip joint [id number] 08/01/2015 [facility] Screening colonoscopy [id number] 08/12/2014 [facility] Screening colonoscopy [id number] 08/12/2014 [facility] Appendectomy [id number] [facility] Appendectomy [id number] [facility]
--- OUTSIDE RECORDS SUMMARY | 2019-01-10 12:01 | XMS REPORT | Summary of Care ---
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 Allergies, Adverse Reactions, Alerts Substance Reaction Severity Status NKDA Active Medications No data available for this section Results No data available for this section Immunizations Given and Recorded Vaccine Date Status Refusal Reason Hx influenza vaccine-unspecified1 03/19/16 Recorded pneumococcal 23-valent vaccine2 09/15/15 Given pneumococcal 23-valent vaccine 09/30/11 Given influenza virus vaccine, inactivated 09/30/11 Given Not Given Vaccine Date Status Refusal Reason pneumococcal 23-valent vaccine3 01/19/16 Not Given Patient Refuses 1Location History: At [facility] 2Result Comment: [facility]-[id number] 3Result Note: already received Procedures Procedure Date Related Diagnosis Body Site [...] PTX drug-eluting periheral stent, right femoral artery [facility] 3Left foot ([facility]) 4Left leg ([facility]) 51. Hardware removal, right femur distal interlocking bolt. 2. Open reduction internal fixation, right periprosthetic femur fracture. Social History Social History Type Response Substance Abuse Use: None. Exercise Exercise duration: 45. Exercise frequency: 3-4 times/week. Exercise type: Walking.1 Employment/School Status: Retired. 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 Alcohol Past, Type Beer. Frequency: 1-2 times per week. Last use: over 6 beers a day. Smoking Status Former smoker; Type: Cigarettes; Previous treatment: None; Exposure to Tobacco Smoke None; Cigarette Smoking Last 365 Days No; Reg Smoking Cessation Counseling No; Tobacco use per day: 5; Stopped at age: 49; 2 entered on: 04/02/18 1Not at the moment due to recent hip surgery. 2Used to smoke 2 PPW. Quit 20 years ago. Assessment and Plan No data available for this section
--- OUTSIDE RECORDS SUMMARY | 2019-01-10 12:01 | XMS REPORT | Summary of Care ---
Author Author [facility] Organization [facility] Address Unknown Phone Unavailable Encounter ILA Butcher(GHISLAINE) [id number] Date(s): 01/18/16 - 01/25/16 [facility] [address] [employer] provided by [facility] [place] [address]- Discharge Disposition: [facility] Facility Attending Physician: Lonnie Wynn MD Admitting Physician: Margo Olmedo MD Vital Signs 1 2 3 Most recent to oldest [Reference Range]: 170.18 cm (01/18/16 8:28 AM) Height 98.8 DegF (01/25/16 5:27 PM) 98.8 DegF (01/25/16 1:06 PM) 99.0 DegF (01/25/16 9:09 AM) Temperature Oral [96.4-99.1 DegF] 138/79 mmHg (01/25/16 5:27 PM) 111/70 mmHg (01/25/16 1:06 PM) 115/63 mmHg (01/25/16 9:09 AM) Blood Pressure [90-140/60-90 mmHg] 18 BRMIN (01/25/16 5:27 PM) 18 BRMIN (01/25/16 1:06 PM) 18 BRMIN (01/25/16 9:09 AM) Respiratory Rate [14-20 BRMIN] 99 bpm (01/25/16 5:27 PM) 90 bpm (01/25/16 1:06 PM) 96 bpm (01/25/16 9:09 AM) Peripheral Pulse Rate [60-100 bpm] 68.182 kg (01/18/16 8:28 AM) Weight 23.54 m2 (01/18/16 8:28 AM) Body Mass Index Problem List Condition Effective Dates Status Health Status Informant Anemia of chronic Active renal failure(Confirmed) Benign hypertension Active with chronic kidney disease, stage IV(Confirmed) Chronic kidney Active disease stage 4(Confirmed) Closed fracture of Active right hip(Confirmed) Diabetes Resolved mellitus(Confirmed) Status post right Active hip replacement(Confirme d) Hypercholesterolemia Active (Confirmed) Hypertension(Confirm Resolved ed) 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 Allergies, Adverse Reactions, Alerts Substance Reaction Severity Status NKDA Active Medications acetaminophen 650 mg, 2 tab, Route: PO, Drug form: TAB, Q4H, Dosing Weight 60.455, kg, PRN Ericka n 1-3/Temp > 100.4 F, Start date: 01/18/16 6:31:00 CDT, Duration: 30 day, Stop date: 02/17/16 6:30:00 CDT Notes: Do not exceed 4 gm/day. (Same as: Tylenol) Start Date: 01/18/16 Stop Date: 01/25/16 Status: Discontinued acetaminophen 325 mg oral tablet 650 mg=2 tab, PO, Q4H, PRN Pain 1-3/Temp > 100.4 F, 0 Refill(s) Start Date: 01/24/16 Status: Ordered acetaminophen-hydrocodone 325 mg-5 mg oral tablet 2 tab, PO, Q4H, PRN Pain Score 7-10, 0 Refill(s) Start Date: 01/24/16 Status: Ordered acetaminophen-hydrocodone 325 mg-5 mg oral tablet 1 tab, PO, Q4H, PRN Pain Score 4-6, 0 Refill(s) Start Date: 01/24/16 Status: Ordered acetaminophen-hydrocodone 325 mg-5 mg oral tablet 1 tab, Route: PO, Drug Form: TAB, Dosing Weight 60.455, kg, Q4H, PRN Pain Score 4-6, Start date: 01/18/16 6:31:00 CDT, Duration: 30 day, Stop date: 02/17/16 6:3 0:00 CDT Notes: (Same as: Inland 325/5) Do not exceed 4gm/day of acetaminophen. Start Date: 01/18/16 Stop Date: 01/25/16 Status: Discontinued acetaminophen-hydrocodone 325 mg-5 mg oral tablet 2 tab, Route: PO, Drug Form: TAB, Dosing Weight 60.455, kg, Q4H, PRN Pain Score 7-10, Start date: 01/18/16 6:31:00 CDT, Duration: 30 day, Stop date: 02/17/16 6: 30:00 CDT Notes: (Same as: Inland 325/5) Do not exceed 4gm/day of acetaminophen. Start Date: 01/18/16 Stop Date: 01/25/16 Status: Discontinued Ancef + sodium chloride 0.9% INJ 100 mL 2 gm, Route: IVPB, Q8H, Dosing Weight 68.182, kg, Start date: 01/19/16 21:00:00 CDT, Duration: 1 day, Stop date: 01/20/16 13:00:00 CDT Notes: (Same As: AncefGisellel) MEDICATION WASTE Product Size: 1000 mgP roduct Wasted: ___ mg Start Date: 01/19/16 Stop Date: 01/20/16 Status: Completed atorvastatin 40 mg, 1 tab, Route: PO, Drug form: TAB, Bedtime, Dosing Weight 60.455, kg, Star t date: 01/18/16 21:00:00 CDT, Duration: 30 day, Stop date: 02/16/16 21:00:00 CD T Notes: (Same as: Lipitor) Start Date: 01/18/16 Stop Date: 01/25/16 Status: Discontinued calcium gluconate + sodium chloride 0.9% INJ 80 mL 2,000 mg, 20 mL, Route: IVPB, ONCE, Dosing Weight 68.182, kg, Start date: 8:36:00 CDT, Stop date: 01/19/16 8:36:00 CDT Notes: WASTE: F/P - Sink; E - Municipal Trash Bin Start Date: 01/19/16 Stop Date: 01/19/16 Status: Completed Calmoseptine topical ointment 1 appl, Route: TOP, Q12H, Drug form: OINT, Start date: 01/24/16 13:30:00 CDT, Du ration: 30 day, Stop date: 02/23/16 9:00:00 CDT Notes: (Same as: Calmoseptine) Start Date: 01/24/16 Stop Date: 01/25/16 Status: Discontinued Calmoseptine topical ointment 1 appl, TOP, Q12H, 0 Refill(s) Start Date: 01/24/16 Status: Ordered ceFAZolin 2 gm, Route: IVP, ONCE, Dosing Weight 68.182, kg, Start date: 01/19/16 15:15:00 CDT, Stop date: 01/19/16 15:15:00 CDT Start Date: 01/19/16 Stop Date: 01/19/16 Status: Completed Colace 100 mg oral capsule 100 mg=1 cap, PO, BID, 0 Refill(s) Start Date: 01/24/16 Status: Ordered Colace 100 mg oral capsule 100 mg, 1 cap, Route: PO, Drug form: CAP, BID, Dosing Weight 60.455, kg, Start d ate: 01/18/16 9:00:00 CDT, Duration: 30 day, Stop date: 02/16/16 17:00:00 CDT Notes: (Same as: Colace) (Do Not Crush) Start Date: 01/18/16 Stop Date: 01/25/16 Status: Discontinued Dextrose 50% Syringe 12.5 gm, 25 mL, Route: IVP, Drug Form: INJ, Dosing Weight 60.455, kg, PRN, PRN B lood Glucose Results, Start date: 01/18/16 6:59:00 CDT, Duration: 30 day, Stop d ate: 02/17/16 6:58:00 CDT Start Date: 01/18/16 Stop Date: 01/25/16 Status: Discontinued Dextrose 50% Syringe 25 gm, 50 mL, Route: IVP, Drug Form: INJ, Dosing Weight 60.455, kg, PRN, PRN Blo od Glucose Results, Start date: 01/18/16 6:59:00 CDT, Duration: 30 day, Stop david e: 02/17/16 6:58:00 CDT Start Date: 01/18/16 Stop Date: 01/25/16 Status: Discontinued enoxaparin 40 mg/0.4 mL subcutaneous solution 40 mg=0.4 mL, SUB-Q, Daily, X 7 day, # 3 mL, 0 Refill(s), other Start Date: 01/25/16 Stop Date: 02/01/16 Status: Ordered folic acid 1 mg, 1 tab, Route: PO, Drug form: TAB, Daily, Dosing Weight 60.455, kg, Start d ate: 01/18/16 9:00:00 CDT, Duration: 30 day, Stop date: 02/16/16 9:00:00 CDT Notes: (Same as: Folvite) Start Date: 01/18/16 Stop Date: 01/25/16 Status: Discontinued glucagon 1 mg, Route: IM, Drug form: PDR/INJ, PRN, Dosing Weight 60.455, kg, PRN Blood Gl ucose Results, Start date: 01/18/16 6:59:00 CDT, Duration: 30 day, Stop date: 6:58:00 CDT Start Date: 01/18/16 Stop Date: 01/25/16 Status: Discontinued heparin 5,000 unit, 1 mL, Route: SUB-Q, Drug form: INJ, Q8H, Dosing Weight 60.455, kg, S tart date: 01/18/16 8:00:00 CDT, Duration: 30 day, Stop date: 02/17/16 0:00:00 C DT Notes: porcine heparin Start Date: 01/18/16 Stop Date: 01/25/16 Status: Discontinued hydrALAZINE 5 mg, 0.25 mL, Route: IV, Drug form: INJ, Q4H, Dosing Weight 60.455, kg, PRN Brenda vated BP, Start date: 01/18/16 7:10:00 CDT, Duration: 30 day, Stop date: 6 7:09:00 CDT, Systolic Blood pressure greater than 160 mmHg Notes: (Same as: Apresoline)Push over 5 minutes Start Date: 01/18/16 Stop Date: 01/25/16 Status: Discontinued Insulin regular 5 unit, 0.05 mL, Route: SUB-Q, Drug form: SOLN, TID-Before Meals, Dosing Weight 60.455, kg, PRN Blood Glucose Results, Start date: 01/18/16 6:59:00 CDT, Duratio n: 30 day, Stop date: 02/17/16 6:58:00 CDT Notes: (Same as: Humulin R) Roll in palms of hands gently; Do not shake vigorou sly. "single patient use only"(Restricted to patients requiring a dose > 60 units)WASTE: F/P - Black; E - Municipal Trash Bin Stable for 28 days at room temperatureExpires in days from Date Start Date: 01/18/16 Stop Date: 01/25/16 Status: Discontinued Insulin regular 2 unit, 0.02 mL, Route: SUB-Q, Drug form: SOLN, TID-Before Meals, Dosing Weight 60.455, kg, PRN Blood Glucose Results, Start date: 01/18/16 6:59:00 CDT, Duratio n: 30 day, Stop date: 02/17/16 6:58:00 CDT Notes: (Same as: Humulin R) Roll in palms of hands gently; Do not shake vigorou sly. "single patient use only"(Restricted to patients requiring a dose > 60 units)WASTE: F/P - Black; E - Municipal Trash Bin Stable for 28 days at room temperatureExpires in days from Date Start Date: 01/18/16 Stop Date: 01/25/16 Status: Discontinued Insulin regular 3 unit, 0.03 mL, Route: SUB-Q, Drug form: SOLN, TID-Before Meals, Dosing Weight 60.455, kg, PRN Blood Glucose Results, Start date: 01/18/16 6:59:00 CDT, Duratio n: 30 day, Stop date: 02/17/16 6:58:00 CDT Notes: (Same as: Humulin R) Roll in palms of hands gently; Do not shake vigorou sly. "single patient use only"(Restricted to patients requiring a dose > 60 units)WASTE: F/P - Black; E - Municipal Trash Bin Stable for 28 days at room temperatureExpires in days from Date Start Date: 01/18/16 Stop Date: 01/25/16 Status: Discontinued Insulin regular 1 unit, 0.01 mL, Route: SUB-Q, Drug form: SOLN, TID-Before Meals, Dosing Weight 60.455, kg, PRN Blood Glucose Results, Start date: 01/18/16 6:59:00 CDT, Duratio n: 30 day, Stop date: 02/17/16 6:58:00 CDT Notes: (Same as: Humulin R) Roll in palms of hands gently; Do not shake vigorou sly. "single patient use only"(Restricted to patients requiring a dose > 60 units)WASTE: F/P - Black; E - Municipal Trash Bin Stable for 28 days at room temperatureExpires in days from Date Start Date: 01/18/16 Stop Date: 01/25/16 Status: Discontinued Insulin regular 4 unit, 0.04 mL, Route: SUB-Q, Drug form: SOLN, TID-Before Meals, Dosing Weight 60.455, kg, PRN Blood Glucose Results, Start date: 01/18/16 6:59:00 CDT, Duratio n: 30 day, Stop date: 02/17/16 6:58:00 CDT Notes: (Same as: Humulin R) Roll in palms of hands gently; Do not shake vigorou sly. "single patient use only"(Restricted to patients requiring a dose > 60 units)WASTE: F/P - Black; E - Municipal Trash Bin Stable for 28 days at room temperatureExpires in days from Date Start Date: 01/18/16 Stop Date: 01/25/16 Status: Discontinued Insulin regular 4 unit, 0.04 mL, Route: SUB-Q, Drug form: SOLN, Bedtime, Dosing Weight 60.455, k g, PRN Blood Glucose Results, Start date: 01/18/16 6:59:00 CDT, Duration: 30 day , Stop date: 02/17/16 6:58:00 CDT Notes: (Same as: Humulin R) Roll in palms of hands gently; Do not shake vigorou sly. "single patient use only"(Restricted to patients requiring a dose > 60 units)WASTE: F/P - Black; E - Municipal Trash Bin Stable for 28 days at room temperatureExpires in days from Date Start Date: 01/18/16 Stop Date: 01/25/16 Status: Discontinued Insulin regular 2 unit, 0.02 mL, Route: SUB-Q, Drug form: SOLN, Bedtime, Dosing Weight 60.455, k g, PRN Blood Glucose Results, Start date: 01/18/16 6:59:00 CDT, Duration: 30 day , Stop date: 02/17/16 6:58:00 CDT Notes: (Same as: Humulin R) Roll in palms of hands gently; Do not shake vigorou sly. "single patient use only"(Restricted to patients requiring a dose > 60 units)WASTE: F/P - Black; E - Municipal Trash Bin Stable for 28 days at room temperatureExpires in days from Date Start Date: 01/18/16 Stop Date: 01/25/16 Status: Discontinued Insulin regular 3 unit, 0.03 mL, Route: SUB-Q, Drug form: SOLN, Bedtime, Dosing Weight 60.455, k g, PRN Blood Glucose Results, Start date: 01/18/16 6:59:00 CDT, Duration: 30 day , Stop date: 02/17/16 6:58:00 CDT Notes: (Same as: Humulin R) Roll in palms of hands gently; Do not shake vigorou sly. "single patient use only"(Restricted to patients requiring a dose > 60 units)WASTE: F/P - Black; E - Municipal Trash Bin Stable for 28 days at room temperatureExpires in days from Date Start Date: 01/18/16 Stop Date: 01/25/16 Status: Discontinued Insulin regular 1 unit, 0.01 mL, Route: SUB-Q, Drug form: SOLN, Bedtime, Dosing Weight 60.455, k g, PRN Blood Glucose Results, Start date: 01/18/16 6:59:00 CDT, Duration: 30 day , Stop date: 02/17/16 6:58:00 CDT Notes: (Same as: Humulin R) Roll in palms of hands gently; Do not shake josé miguelorou sly. "single patient use only"(Restricted to patients requiring a dose > 60 units)WASTE: F/P - Black; E - Municipal Trash Bin Stable for 28 days at room temperatureExpires in days from Date Start Date: 01/18/16 Stop Date: 01/25/16 Status: Discontinued Kayexalate 15 gm, 60 mL, Route: PO, Drug form: SUSP, ONCE, Dosing Weight 68.182, kg, Start date: 01/19/16 8:36:00 CDT, Stop date: 01/19/16 8:36:00 CDT Notes: (sodium polystyrene sulfonate 15 gm/60 ml CARROLL) Shake well before use. (Same as: Kayexalate, SPS) Start Date: 01/19/16 Stop Date: 01/19/16 Status: Completed Lopressor 12.5 mg, 1 tab, Route: PO, Drug form: TAB, Q12H, Dosing Weight 68.182, kg, Start date: 01/24/16 0:00:00 CDT, Duration: 30 day, Stop date: 02/22/16 21:00:00 CDT Notes: (Same as: Lopressor) 12.5mg=1/4 X 50 mg tab. Start Date: 01/24/16 Stop Date: 01/25/16 Status: Discontinued losartan 25 mg, PO, Daily, 0 Refill(s) Start Date: 01/19/16 Status: Ordered metoprolol tartrate 12.5 mg, 1 tab, Route: PO, Drug form: TAB, Q12H, Dosing Weight 68.182, kg, Start date: 01/23/16 12:00:00 CDT, Duration: 30 day, Stop date: 02/22/16 9:00:00 CDT Notes: (Same as: Lopressor) 12.5mg=1/4 X 50 mg tab. Start Date: 01/23/16 Stop Date: 01/23/16 Status: Discontinued metoprolol tartrate 25 mg oral tablet 12.5 mg=0.5 tab, PO, Q12H, 0 Refill(s) Start Date: 01/24/16 Status: Ordered morphine Sulfate 2 mg, 1 mL, Route: IVP, Drug form: INJ, Q4H, Dosing Weight 60.455, kg, PRN Pain Score 7-10, Start date: 01/18/16 6:31:00 CDT, Duration: 30 day, Stop date: 02/16 6:30:00 CDT Notes: (Same as:MORPhine Sulfate) Start Date: 01/18/16 Stop Date: 01/25/16 Status: Discontinued NIFEdipine 60 mg oral tablet, extended release 60 mg, 1 tab, Route: PO, Drug form: ERTAB, Daily, Dosing Weight 60.455, kg, Star t date: 01/18/16 9:00:00 CDT, Duration: 30 day, Stop date: 02/16/16 9:00:00 CDT Notes: (Same as: Adalat CC, Procardia XL) Give on empty stomach. Take 1 hour be fore or 2 hours after meal; "Avoid grapefruit and grapefruit juice". Do not cru sh Start Date: 01/18/16 Stop Date: 01/25/16 Status: Discontinued NS (Bolus) IV 500 mL, 500 ml/hr, Infuse Over: 1 hr, Route: IV, 500, Drug form: INJ, ONCE, Prio rity: STAT, Dosing Weight 68.182 kg, Start date: 01/20/16 9:00:00 CDT, Duration: 1 doses or times, Stop date: 01/20/16 9:00:00 CDT Start Date: 01/20/16 Stop Date: 01/20/16 Status: Completed ondansetron 4 mg, 2 mL, Route: IVP, Drug form: INJ, Q6H, Dosing Weight 60.455, kg, PRN Nause a & Vomiting, Start date: 01/18/16 6:31:00 CDT, Duration: 30 day, Stop date: 02/17/16 6:30:00 CDT Notes: (Same as: Zofran) MEDICATION WASTE Product Size: 4 mgProduct Was pedro: _0__ mg Start Date: 01/18/16 Stop Date: 01/25/16 Status: Discontinued pneumococcal 23-valent vaccine 0.5 mL, Route: IM, Drug Form: INJ, Daily, Start date: 01/19/16 9:00:00 CDT, Dura tion: 1 doses or times, Stop date: 01/19/16 9:00:00 CDT Notes: (Same as: Pneumovax 23) Refrigerate Start Date: 01/19/16 Stop Date: 01/19/16 Status: Completed prochlorperazine 5 mg, 1 mL, Route: IV, Drug form: INJ, Q6H, Dosing Weight 68.182, kg, PRN Nausea & Vomiting, Start date: 01/21/16 10:48:00 CDT, Duration: 30 day, Stop date: 02/20/16 10:47:00 CDT, .. Notes: (Same as: Compazine) Start Date: 01/21/16 Stop Date: 01/25/16 Status: Discontinued prochlorperazine 10 mg oral tablet 10 mg=1 tab, PO, TID, PRN as needed for nausea/vomiting, X 10 day, # 30 tab, 0 R efill(s) Start Date: 01/24/16 Stop Date: 02/03/16 Status: Ordered Reglan 10 mg, 2 mL, Route: IVP, Drug form: INJ, Q6H, Dosing Weight 68.182, kg, Start da te: 01/24/16 18:00:00 CDT, Duration: 30 day, Stop date: 02/23/16 15:00:00 CDT Notes: (Same as: Reglan) Start Date: 01/24/16 Stop Date: 01/25/16 Status: Discontinued Reglan 10 mg, 2 mL, Route: IVP, Drug form: INJ, Q6H, Dosing Weight 68.182, kg, PRN Naus ea & Vomiting, Start date: 01/21/16 17:10:00 CDT, Duration: 30 day, Stop date: 02/20/16 17:09:00 CDT Notes: (Same as: Reglan) Start Date: 01/21/16 Stop Date: 01/24/16 Status: Discontinued remove patch 1 patch, Route: TOP, Drug form: ERFILM, Q72H, Start date: 01/23/16 11:00:00 CDT, Duration: 30 day, Stop date: 02/19/16 11:00:00 CDT Notes: Remove old patch before application of new patch. Start Date: 01/23/16 Stop Date: 01/23/16 Status: Discontinued remove patch 1 patch, Route: TOP, Drug form: ERFILM, ONCE, Start date: 01/23/16 11:07:00 CDT, Stop date: 01/23/16 11:07:00 CDT Start Date: 01/23/16 Stop Date: 01/23/16 Status: Completed scopolamine 1.5 mg transdermal film 1 patch, Route: TOP, Drug Form: ERFILM, Dosing Weight 68.182, kg, Q72H, Start da te: 01/20/16 6:00:00 CDT, Duration: 30 day, Stop date: 02/16/16 11:00:00 CDT Notes: Change patch every 72 hours (Same as: Transderm-Scop) Start Date: 01/20/16 Stop Date: 01/23/16 Status: Discontinued senna 17.2 mg, 2 tab, Route: PO, Drug Form: TAB, Dosing Weight 60.455, kg, Daily, Star t date: 01/18/16 9:00:00 CDT, Duration: 30 day, Stop date: 02/16/16 9:00:00 CDT Notes: (Same as: Senokot) Start Date: 01/18/16 Stop Date: 01/18/16 Status: Canceled Sodium Chloride 0.9% (Bolus) IV 1,000 mL, 1,000 ml/hr, Infuse Over: 1 hr, Route: IV, 1,000, Drug form: INJ, ONCE , Priority: STAT, Dosing Weight 60.455 kg, Start date: 01/18/16 4:53:00 CDT, Dur ation: 1 doses or times, Stop date: 01/18/16 4:53:00 CDT Start Date: 01/18/16 Stop Date: 01/18/16 Status: Completed sodium chloride 0.9% 1000 ml INJ 1,000 mL 1,000 mL, Rate: 100 ml/hr, Infuse over: 10 hr, Route: IV, Dosing Weight 68.182 k g, Total Volume: 1,000, Start date: 01/19/16 8:34:00 CDT, Stop date: 02/18/16 8: 33:00 CDT Start Date: 01/19/16 Stop Date: 01/25/16 Status: Discontinued sodium chloride 0.9% INJ 250 mL 250 mL, Rate: memorial designer for use with blood product administration, Dosing Weight 6 8.182, kg, Route: IV, Total Volume: 250, Start Date: 01/21/16 8:08:00 CDT, Durat ion: 30 day, Stop date: 02/20/16 8:07:00 CDT, Replace Every: 24 hr Start Date: 01/21/16 Stop Date: 01/25/16 Status: Discontinued sodium chloride 0.9% INJ 250 mL 250 mL, Rate: memorial designer for use with blood product administration, Dosing Weight 6 8.182, kg, Route: IV, Total Volume: 250, Start Date: 01/19/16 8:35:00 CDT, Durat ion: 30 day, Stop date: 02/18/16 8:34:00 CDT, Replace Every: 24 hr Start Date: 01/19/16 Stop Date: 01/21/16 Status: Discontinued sodium chloride 0.9% INJ 250 mL 250 mL, Rate: memorial designer for use with blood product administration, Dosing Weight 6 8.182, kg, Route: IV, Total Volume: 250, Start Date: 01/24/16 12:31:00 CDT, Dura tion: 1 doses or times, Stop date: 01/25/16 12:30:00 CDT, Replace Every: 24 hr Start Date: 01/24/16 Stop Date: 01/25/16 Status: Completed tamsulosin 0.8 mg, 2 cap, Route: PO, Drug form: CAP, Daily, Dosing Weight 60.455, kg, Start date: 01/18/16 9:00:00 CDT, Stop date: 02/16/16 9:00:00 CDT Notes: (Same As: Flomax) "Do Not Crush" Start Date: 01/18/16 Stop Date: 01/25/16 Status: Discontinued tamsulosin 0.4 mg oral capsule 0.8 mg=2 cap, PO, Daily, 0 Refill(s) Start Date: 01/24/16 Status: Ordered Zofran 4 mg, 2 mL, Route: IVP, Drug form: INJ, ONCE, Dosing Weight 68.182, kg, Start da te: 01/20/16 10:37:00 CDT, Stop date: 01/20/16 10:37:00 CDT Notes: (Same as: John) MEDICATION WASTE Product Size: 4 mgProduct Was pedro: ___ mg Start Date: 01/20/16 Stop Date: 01/20/16 Status: Completed Results BLOOD BANK RESULTS 1 2 3 Most recent to oldest [Reference Range]: O POS *Unknown* (01/24/16 1:09 PM) O POS *Unknown* (01/18/16 5:33 AM) ABO/Rh Negative (01/24/16 1:09 PM) Negative (01/18/16 5:33 AM) Antibody Scrn Product available (01/24/16 12:31 PM) Product available (01/21/16 8:08 AM) Product available (01/19/16 8:35 AM) RBC product ELECTROLYTES 1 2 3 Most recent to oldest [Reference Range]: 140 mEq/L (01/25/16 3:49 AM) 142 mEq/L (01/24/16 3:52 AM) 145 mEq/L (01/23/16 10:10 AM) Sodium Lvl [135-145 mEq/L] 3.1 mEq/L *LOW* (01/25/16 3:49 AM) 3.5 mEq/L (01/24/16 3:52 AM) 3.5 mEq/L (01/23/16 10:10 AM) Potassium Lvl [3.5-5.1 mEq/L] 115 mEq/L *HI* (01/25/16 3:49 AM) 115 mEq/L *HI* (01/24/16 3:52 AM) 118 mEq/L *HI* (01/23/16 10:10 AM) Chloride Lvl [95-109 mEq/L] 15 mEq/L *LOW* (01/25/16 3:49 AM) 15 mEq/L *LOW* (01/24/16 3:52 AM) 15 mEq/L *LOW* (01/23/16 10:10 AM) CO2 [24-32 mEq/L] 13.1 mEq/L (01/25/16 3:49 AM) 15.5 mEq/L (01/24/16 3:52 AM) 15.5 mEq/L (01/23/16 10:10 AM) AGAP [10.0-20.0 mEq/L] CHEM PANEL 1 2 3 Most recent to oldest [Reference Range]: 2.26 mg/dL *HI* (01/25/16 3:49 AM) 2.20 mg/dL *HI* (01/24/16 3:52 AM) 2.18 mg/dL *HI* (01/23/16 10:10 AM) Creatinine Lvl [0.50-1.40 mg/dL] 28 mL/min/1.73m2 1 *NA* (01/25/16 3:49 AM) 29 mL/min/1.73m2 2 *NA* (01/24/16 3:52 AM) 29 mL/min/1.73m2 3 *NA* (01/23/16 10:10 AM) eGFR 43 mg/dL *HI* (01/25/16 3:49 AM) 43 mg/dL *HI* (01/24/16 3:52 AM) 42 mg/dL *HI* (01/23/16 10:10 AM) BUN [7-22 mg/dL] 18 (01/22/16 5:08 AM) 18 (01/18/16 2:45 AM) B/C Ratio [6-25] 121 mg/dL *HI* (01/25/16 3:49 AM) 137 mg/dL *HI* (01/24/16 3:52 AM) 145 mg/dL *HI* (01/23/16 10:10 AM) Glucose Lvl [70-99 mg/dL] 5.7 g/dL *LOW* (01/22/16 5:08 AM) 7.4 g/dL (01/18/16 2:45 AM) Total Protein [6.4-8.4 g/dL] 2.3 g/dL *LOW* (01/22/16 5:08 AM) 3.6 g/dL (01/18/16 2:45 AM) Albumin Lvl [3.5-5.0 g/dL] 3.4 g/dL (01/22/16 5:08 AM) 3.8 g/dL (01/18/16 2:45 AM) Globulin [2.0-4.0 g/dL] 0.7 (01/22/16 5:08 AM) 0.9 (01/18/16 2:45 AM) A/G Ratio [0.7-1.6] 8.0 mg/dL *LOW* (01/25/16 3:49 AM) 7.9 mg/dL *LOW* (01/24/16 3:52 AM) 8.0 mg/dL *LOW* (01/23/16 10:10 AM) Calcium Lvl [8.5-10.5 mg/dL] 4.3 mg/dL (01/18/16 2:45 AM) Phosphorus [2.5-4.5 mg/dL] 2.1 mg/dL (01/19/16 2:00 AM) 2.2 mg/dL (01/18/16 2:45 AM) Magnesium Lvl [1.8-2.4 mg/dL] 9 unit/L (01/22/16 5:08 AM) 31 unit/L (01/18/16 2:45 AM) ALT [0-65 unit/L] 30 unit/L (01/22/16 5:08 AM) 24 unit/L (01/18/16 2:45 AM) AST [0-37 unit/L] 96 unit/L (01/22/16 5:08 AM) 121 unit/L (01/18/16 2:45 AM) Alk Phos [39-136 unit/L] 0.8 mg/dL (01/22/16 5:08 AM) 0.2 mg/dL (01/18/16 2:45 AM) Bili Total [0.2-1.3 mg/dL] 14 pg/mL *LOW* (01/18/16 7:28 PM) Vitamin D 1,25 (OH)2 Total [18-72 pg/mL] 27 ng/mL *LOW* (01/18/16 7:28 PM) Vitamin D, 25-OH, Total [30-100 ng/mL] 14 pg/mL 4 *NA* (01/18/16 7:28 PM) Vitamin D2 1,25 (OH)2 <8 pg/mL *NA* (01/18/16 7:28 PM) Vitamin D3 1,25 (OH)2 1Result Comment: The eGFR is calculated using the [...] from the National Kid[employer] Education Program ( NKDEP) which additionally recommends that when the eGFR is used in patients with extremes of body mass index for purposes of drug dosing, the eGFR should be mul tiplied by the estimated BMI. 2Result Comment: The eGFR is calculated using the [...] from the National Kid[employer] Education Program ( NKDEP) which additionally recommends that when the eGFR is used in patients with extremes of body mass index for purposes of drug dosing, the eGFR should be mul tiplied by the estimated BMI. 3Result Comment: The eGFR is calculated using the [...] from the National Kid[employer] Education Program ( NKDEP) which additionally recommends that when the eGFR is used in patients with extremes of body mass index for purposes of drug dosing, the eGFR should be mul tiplied by the estimated BMI. 4Result Comment: Vitamin D2, 1,25 (OH)2: Reference ranges are established for total 1,25-dihydroxy vitamin D. Values for subcomponents D2 (derived from plant or fungal sources) and D3 (derived from human or animal sources) are provided for informational purposes only. This test(s) was developed and its performance characteristics have been determined by [facility], [place], [place]. Performance characteristics refer to the analytical performance of the test. Test Performed at: [facility], [address] [place] [id number] Robert Good MD, FCAP URINE AND STOOL 1 2 3 Most recent to oldest [Reference Range]: Clear (01/22/16 12:30 AM) UA Turbidity [Clear] Light Yellow *NA* (01/22/16 12:30 AM) UA Color [Yellow] 5.5 (01/22/16 12:30 AM) UA pH [5.0-8.0] 1.009 (01/22/16 12:30 AM) UA Spec Grav [<=1.030] 30 mg/dL *ABN* (01/22/16 12:30 AM) UA Glucose [Negative mg/dL] Moderate *ABN* (01/22/16 12:30 AM) UA Blood [Negative] Negative mg/dL *NA* (01/22/16 12:30 AM) UA Ketones [Negative mg/dL] 30 mg/dL *ABN* (01/22/16 12:30 AM) UA Protein [Negative mg/dL] <=1.0 mg/dL *NA* (01/22/16 12:30 AM) UA Urobilinogen [0.1-1.0 mg/dL] Negative *NA* (01/22/16 12:30 AM) UA Bili [Negative] Negative (01/22/16 12:30 AM) UA Leuk Est [Negative] Negative (01/22/16 12:30 AM) UA Nitrite [Negative] 2 /HPF (01/22/16 12:30 AM) UA WBC [0-5 /HPF] Occasional /HPF *NA* (01/22/16 12:30 AM) UA Bacteria [None Seen /HPF] None Seen *NA* (01/22/16 12:30 AM) UA Sq Epi Few /LPF *NA* (01/22/16 12:30 AM) UA Mucus [None Seen /LPF] HEMATOLOGY 1 2 3 Most recent to oldest [Reference Range]: 4.2 K/CMM (01/25/16 3:49 AM) 4.8 K/CMM (01/24/16 3:51 AM) 4.8 K/CMM (01/23/16 1:15 AM) WBC [3.7-10.4 K/CMM] 2.70 M/CMM *LOW* (01/25/16 3:49 AM) 2.32 M/CMM *LOW* (01/24/16 3:51 AM) 2.35 M/CMM *LOW* (01/23/16 1:15 AM) RBC [4.70-6.10 M/CMM] 8.3 g/dL *LOW* (01/25/16 3:49 AM) 7.5 g/dL *LOW* (01/24/16 3:51 AM) 7.1 g/dL *LOW* (01/23/16 1:15 AM) Hgb [14.0-18.0 g/dL] 25.1 % *LOW* (01/25/16 3:49 AM) 21.9 % *LOW* (01/24/16 3:51 AM) 21.3 % *LOW* (01/23/16 1:15 AM) Hct [42.0-54.0 %] 93.0 fL (01/25/16 3:49 AM) 94.3 fL *HI* (01/24/16 3:51 AM) 90.9 fL (01/23/16 1:15 AM) MCV [80.0-94.0 fL] 30.6 pg (01/25/16 3:49 AM) 32.5 pg *HI* (01/24/16 3:51 AM) 30.3 pg (01/23/16 1:15 AM) MCH [27.0-31.0 pg] 32.9 g/dL (01/25/16 3:49 AM) 34.5 g/dL (01/24/16 3:51 AM) 33.3 g/dL (01/23/16 1:15 AM) MCHC [32.0-36.0 g/dL] 15.5 % *HI* (01/25/16 3:49 AM) 16.4 % *HI* (01/24/16 3:51 AM) 15.9 % *HI* (01/23/16 1:15 AM) RDW [11.5-14.5 %] 166 K/CMM (01/25/16 3:49 AM) 164 K/CMM (01/24/16 3:51 AM) 116 K/CMM *LOW* (01/23/16 1:15 AM) Platelet [133-450 K/CMM] 7.0 fL *LOW* (01/25/16 3:49 AM) 7.2 fL *LOW* (01/24/16 3:51 AM) 7.2 fL *LOW* (01/23/16 1:15 AM) MPV [7.4-10.4 fL] 59.0 % (01/25/16 3:49 AM) 70.7 % (01/24/16 3:51 AM) 66.5 % (01/23/16 1:15 AM) Segs [45.0-75.0 %] 21.3 % (01/25/16 3:49 AM) 14.8 % *LOW* (01/24/16 3:51 AM) 20.5 % (01/23/16 1:15 AM) Lymphocytes [20.0-40.0 %] 17.1 % *HI* (01/25/16 3:49 AM) 12.6 % *HI* (01/24/16 3:51 AM) 11.8 % (01/23/16 1:15 AM) Monocytes [2.0-12.0 %] 2.2 % (01/25/16 3:49 AM) 1.4 % (01/24/16 3:51 AM) 0.8 % (01/23/16 1:15 AM) Eosinophils [0.0-4.0 %] 0.4 % (01/25/16 3:49 AM) 0.5 % (01/24/16 3:51 AM) 0.4 % (01/23/16 1:15 AM) Basophils [0.0-1.0 %] 2.5 K/CMM (01/25/16 3:49 AM) 3.4 K/CMM (01/24/16 3:51 AM) 3.2 K/CMM (01/23/16 1:15 AM) Segs-Bands # [1.5-8.1 K/CMM] 0.9 K/CMM *LOW* (01/25/16 3:49 AM) 0.7 K/CMM *LOW* (01/24/16 3:51 AM) 1.0 K/CMM (01/23/16 1:15 AM) Lymphocytes # [1.0-5.5 K/CMM] 0.7 K/CMM (01/25/16 3:49 AM) 0.6 K/CMM (01/24/16 3:51 AM) 0.6 K/CMM (01/23/16 1:15 AM) Monocytes # [0.0-0.8 K/CMM] 0.1 K/CMM (01/25/16 3:49 AM) 0.1 K/CMM (01/24/16 3:51 AM) 0.1 K/CMM (01/19/16 2:00 AM) Eosinophils # [0.0-0.5 K/CMM] 0.1 K/CMM (01/20/16 5:30 AM) Basophils # [0.0-0.2 K/CMM] 15.9 seconds *HI* (01/25/16 3:49 AM) 15.6 seconds *HI* (01/24/16 3:52 AM) 16.1 seconds *HI* (01/18/16 5:33 AM) PT [12.0-14.7 seconds] 1.24 *HI* (01/25/16 3:49 AM) 1.21 *HI* (01/24/16 3:52 AM) 1.26 *HI* (01/18/16 5:33 AM) INR [0.85-1.17] 5.55 ug/mL FEU *NA* (01/23/16 10:10 AM) 2.84 ug/mL FEU *NA* (01/21/16 8:59 PM) D-Dimer 39.9 seconds *HI* (01/25/16 3:49 AM) 42.2 seconds *HI* (01/24/16 3:52 AM) 40.0 seconds *HI* (01/18/16 5:33 AM) PTT [22.9-35.8 seconds] Immunizations Given and Recorded Vaccine Date Status Refusal Reason influenza virus vaccine, inactivated 09/30/11 Given pneumococcal 23-valent vaccine1 09/15/15 Given pneumococcal 23-valent vaccine 09/30/11 Given Not Given Vaccine Date Status Refusal Reason pneumococcal 23-valent vaccine 01/19/16 Not Given Patient Refuses 1Result Comment: [id number] Procedures Procedure Date Related Diagnosis Body Site Total replacement of right hip joint 08/01/15 Screening colonoscopy 2014 Appendectomy Social History Social History Type Response Substance Abuse Use: None. Exercise Exercise duration: 45. Exercise frequency: 3-4 times/week. 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 Alcohol Past, Type Beer. Frequency: 1-2 times per week. Last use: over 6 beers a day. Smoking Status Former smoker; Type: Cigarettes; Tobacco use per day: 5; Stopped at age: 49; Previous treatment: None; Exposure to Tobacco Smoke None; Cigarette Smoking Last 365 Days No; Reg Smoking Cessation Counseling No2 1Not at the moment due to recent hip surgery. 2Used to smoke 2 PPW. Quit 20 years ago. Assessment and Plan Extracted from: Title: Hospitalist Progress Note Author: Margo Olmedo MD Date: 01/23/16 Assessment/Plan Mr. Huertas is a 70 yo man with PMHxof T2DM, HTN, CKD IV, HLD, and BPH who presented s/pfall off barstool, sustaining R femur fracture now s/p ORIF. Pending medical stability and clearance for placement, likely home with . 1.Fracture of right femur, periprosthetic s/p ORIF, ORSs/o and NWB RLE with knee immobilizer at all times - Cont working with PT/OT for likely SNF placement 2.DM (diabetes mellitus), type 2 Glu range controlled, cont to hold home oral meds; SSI and ADA Diet 3.HTN (hypertension) BP controlled, no need for adjustment at this time 4.CKD (chronic kidney disease), stage IV Cr continues to improve, good UOP and cont IVF with avoidance of additional nephrotoxic agents 5.Hyperlipidemia Cont statin 6.Benign prostatic hypertrophy Flomax and given urinary retention cont intermittent straight cath - If patient continues with this and penile edema, then may consider Urology consult for evaluation- does not appear to have infection or balantitis for emergent needs 7.Acute blood loss anemia H/H stable around 7, asymptomatic and no plans for transfusion at this time 8.Moderate nausea Controlled, discontinue scop patch given intermitent confusion and cont PRN meds 9.Altered mental state Appears likely delirium, likely multi-factorial. Cultures and labs relatively nml otherwise - Cont with delirium precautions, good PO intake and more lucid on exam Prophylaxis heparin SQ Disposition Pending clearance and medical stability for placement to likely SNF [facility] is primary for this patient, please page [phone] with questions. Extracted from: Title: Infection Control Isolation Author: Nadege Hall Date: 01/19/16 Alert ISOLATION ALERT This patient has a history of infection/colonization with MRSA. Site Date Sputum 10/05/2011 Isolation Required: CONTACT Before isolation precautions may be discontinued for this hospital visit, the following protocol must be followed and Infection Control should be notified: Patient must be off antibiotics for 72 hours or 7 days if on dialysis and vancomycin. Send one MRSA PCR nares specimen. Please place order for MRSA PCR. Do not order MRSA Culture. If MRSA PCR is negative, isolation may be discontinued. Patient can only be cleared from isolation for this visit. If readmitted, patient must be isolated and screened for MRSA again. Consult Infection Control for suggested regimens for decolonization of patients with MRSA as well as for any questions. We can be reached at [phone]. Extracted from: Title: Hospitalist History and Author: Jamarcus Quesada MD Date: 01/18/16 Physical Assessment/Plan 1.Fracture of right femur, periprosthetic 2.Preop cardiovascular exam 3.DM (diabetes mellitus), type 2 4.HTN (hypertension) 5.CKD (chronic kidney disease), stage IV 6.Hyperlipidemia 7.Benign prostatic hypertrophy Orders: acetaminophen, 650 mg, 2 tab, Route: PO, Drug form: TAB, Q4H, Dosing Weight 60.455, kg, PRN Pain 1-3/Temp > 100.4 F, Start date: 01/18/16 6:31:00 CDT, Duration: 30 day, Stop date: 02/17/16 6:30:00 CDT acetaminophen-hydrocodone 325 mg-5 mg oral tablet, 1 tab, Route: PO, Drug Form: TAB, Dosing Weight 60.455, kg, Q4H, PRN Pain Score 4-6, Start date: 01/18/16 6:31:00 CDT, Duration: 30 day, Stop date: 02/17/16 6:30:00 CDT acetaminophen-hydrocodone 325 mg-5 mg oral tablet, 2 tab, Route: PO, Drug Form: TAB, Dosing Weight 60.455, kg, Q4H, PRN Pain Score 7-10, Start date: 01/18/16 6:31:00 CDT, Duration: 30 day, Stop date: 02/17/16 6:30:00 CDT Colace 100 mg oral capsule, 100 mg, 1 cap, Route: PO, Drug form: CAP, BID, Dosing Weight 60.455, kg, Start date: 01/18/16 9:00:00 CDT, Duration: 30 day, Stop date: 02/16/16 17:00:00 CDT heparin, 5,000 unit, 1 mL, Route: SUB-Q, Drug form: INJ, Q8H, Dosing Weight 60.455, kg, Start date: 01/18/16 8:00:00 CDT, Duration: 30 day, Stop date: 02/17/16 0:00:00 CDT morphine Sulfate, 2 mg, 1 mL, Route: IVP, Drug form: INJ, Q4H, Dosing Weight 60.455, kg, PRN Pain Score 7-10, Start date: 01/18/16 6:31:00 CDT, Duration: 30 day, Stop date: 02/17/16 6:30:00 CDT ondansetron, 4 mg, 2 mL, Route: IVP, Drug form: INJ, Q6H, Dosing Weight 60.455, kg, PRN Nausea & Vomiting, Start date: 01/18/16 6:31:00 CDT, Duration: 30 day, Stop date: 02/17/16 6:30:00 CDT senna, 17.2 mg, 2 tab, Route: PO, Drug Form: TAB, Dosing Weight 60.455, kg, Daily, Start date: 01/18/16 9:00:00 CDT, Duration: 30 day, Stop date: 02/16/16 9:00:00 CDT Up with Assistance Basic Metabolic Panel CDM Admission Acute Care Post ED Complete Blood Count w/ Diff and Platelet Diet NPO Graduated Compression Stockings Intake and Output Magnesium Level Provide Education AC4 Patient Education AC4 Falls Protocol Pulse Oximetry Spot Check by Nurse Resuscitation (Code) Status SCD Application Turn Vital Signs Weigh patient AC4 Addendum by Dipak A/P Jamarcus Wong MD 1.Fracture of right femur, periprosthetic on Admit to Med Surg bed. NPO, IVF, Pain control. Plan is for operative fixation per ORS. 01/18/2016 NWB RLE, imobilizer in place. 07:27 CDT 2.Preop cardiovascular exam Patient denies any prior cardiovascular history or acute cardiovascular complaints.Patienthas poor overall functional status. He is able to ambulate 5 blocks without cardiovascular symptoms and recently underwent right hip arthroplasty in Jul 2015 without any acute events. Will obtain a baseline EKG however barring any major abnormality on EKG patient is considered a low to intermediate perioperative Cardiovascular risk for intermediate risk surgery and may proceed without further preoperative workup. 3.DM (diabetes mellitus), type [address]os and place on low dose SSI 4.HTN (hypertension) Cont on Nifedipne. PRN IV hydralazine 5.CKD (chronic kidney disease), stage IV Appears to be at baseline 6.Hyperlipidemia Cont on statin 7.Benign prostatic hypertrophy On flomax Primary team: [facility] Hospitalist Please call [phone] with any questions
--- OUTSIDE RECORDS SUMMARY | 2019-01-10 12:01 | XMS REPORT | Summary of Care ---
Author Author [facility] Organization [facility] Address Unknown Phone Unavailable Encounter HQ Guadalupe(FIN) [id number] Date(s): 07/01/17 - 07/01/17 [facility] [address], [address] [place] [address]- [phone] Attending Physician: Rosalba Florence MD Vital Signs No data available for this [...] Not Given Patient Refuses 1Location History: At [facility] 2Result Comment: [facility]-[id number] Procedures Procedure Date Related Diagnosis Body Site Comprehensive eye examination1 10/24/16 Insertion of stent into femoral artery2 07/04/16 Amputation great toe3 03/2016 Endovascular insertion of stent4 03/2016 Open reduction of fracture of femur with 01/19/16 internal fixation5 Total replacement of right hip joint 08/01/15 Screening colonoscopy 2014 Appendectomy 1no retinopathy (Murphy Alexandra OD) 2Zilver PTX drug-eluting periheral stent, right femoral artery [facility] 3Left foot ([facility]) 4Left leg ([facility]) 51. Hardware removal, right femur distal interlocking bolt. 2. Open reduction internal fixation, right periprosthetic femur fracture. Social History Social History Type Response Substance Abuse Use: None. Exercise Exercise duration: 45. Exercise frequency: 3-4 times/week. 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 Alcohol Past, Type Beer. Frequency: 1-2 times per week. Last use: over 6 beers a day. Smoking Status Former smoker; Type: Cigarettes; Previous treatment: None; Exposure to Tobacco Smoke None; Cigarette Smoking Last 365 Days No; Reg Smoking Cessation Counseling No; Tobacco use per day: 5; Stopped at age: 49; 2 1Not at the moment due to recent hip surgery. 2Used to smoke 2 PPW. Quit 20 years ago. Assessment and Plan No data available for this section
--- OUTSIDE RECORDS SUMMARY | 2019-01-10 12:01 | XMS REPORT | Summary of Care ---
Author Author [facility] Organization [facility] Address Unknown Phone Unavailable Encounter HQ Maureen_gardenia(FIN) [id number] Date(s): 04/02/18 - 04/02/18 [facility] [address], [address] [place] [address]- [phone] Discharge Disposition: Home or Self Care Attending Physician: Rosalba Florence MD Vital Signs Most recent to 1 oldest [Reference Range]: Height 175.26 cm (04/02/18 12:32 PM) Temperature Oral 97.7 DegF [96.4-99.1 DegF] (04/02/18 12:32 PM) Blood Pressure 152/82 mmHg [90-140/60-90 mmHg] *HI* (04/02/18 12:32 PM) Respiratory Rate 16 BRMIN [14-20 BRMIN] (04/02/18 12:32 PM) Peripheral Pulse 74 bpm Rate [60-100 bpm] (04/02/18 12:32 PM) Weight 66.08 kg (04/02/18 12:32 PM) Body Mass Index 21.51 m2 (04/02/18 12:32 PM) Problem List Condition Effective Dates Status Health [...] Substance Reaction Severity Status NKDA Active Medications tamsulosin 0.4 mg oral capsule 0.4 mg=1 cap, PO, Daily, # 90 cap, 1 Refill(s), Pharmacy: [facility]/pharmacy #[id number] Start Date: 04/02/18 Status: Ordered Results No data available for this section Immunizations Given and Recorded Vaccine Date Status Refusal Reason Hx influenza vaccine-unspecified1 03/19/16 Recorded pneumococcal 23-valent vaccine2 09/15/15 Given pneumococcal 23-valent vaccine 09/30/11 Given influenza virus vaccine, inactivated 09/30/11 Given Not Given Vaccine Date Status Refusal Reason pneumococcal 23-valent vaccine3 01/19/16 Not Given Patient Refuses 1Location History: [facility] 2Result Comment: [facility]-[id number] 3Result Note: already received Procedures Procedure Date [...] PTX drug-eluting periheral stent, right femoral artery [facility] 3Left foot ([facility]) 4Left leg ([facility]) 51. Hardware removal, right femur distal interlocking bolt. 2. Open reduction internal fixation, right periprosthetic femur fracture. Social History Social History Type Response Substance Abuse Use: None. Exercise Exercise duration: 45. Exercise frequency: 3-4 times/week. 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 Alcohol Past, Type Beer. Frequency: 1-2 times [...]
--- NOTE | 2019-01-10 14:00 | Diagnostic Imaging Report ---
EXAMINATION: Chest PA and lateral views INDICATION: Pain status post fall. ^[id number] ^[id number] COMPARISON: None FINDINGS: TUBES and LINES: None. LUNGS: Lungs are well inflated. Oval density in the lower right hemithorax medially on the PA view may represent enlarged pulmonary artery. There is no evidence of pneumonia or pulmonary edema. PLEURA: No pleural effusion or pneumothorax. HEART AND MEDIASTINUM: The cardia silhouette is mildly enlarged. BONES AND SOFT TISSUES: Deformity of the lateral left mid to lower rib cage probably related to prior traumatic injury, however, acute injury cannot be excluded; correlate for focal tenderness. Osteopenia of the lower thoracic spine limits evaluation, however, there appears to be anterior wedging of T10 and T11. UPPER ABDOMEN: No free air under the diaphragm. IMPRESSION: Findings suggestive of prior right rib cage traumatic injury. Superimposed acute injury cannot be excluded due to overlapping structures. In addition, questionable anterior wedge deformity of lower thoracic vertebra. Signed by: Dr. Angeles Ochoa M.D. on 01/10/2019 1:56 PM
--- NOTE | 2019-01-10 14:21 | Diagnostic Imaging Report ---
Right hip with AP pelvis 5 views HISTORY: Pain status post fall COMPARISON: None FINDINGS: No displaced fracture. Remote fracture of the femoral neck with callus formation extending lateral to the right acetabulum. Status post ORIF of the proximal right femur with hardware partially visualized. Basilar calcifications. Stent graft projected on the proximal left thigh. Degenerative changes of the L5-S1 level. Mild degenerative changes of the bilateral SI and hip joints. IMPRESSION: No acute displaced fracture. Signed by: Dr. Angeles Ochoa M.D. on 01/10/2019 2:17 PM
--- NOTE | 2019-01-10 15:28 | Diagnostic Imaging Report ---
EXAM: Bilateral Lower Extremity Duplex Ultrasound INDICATION: Bilateral lower extremity swelling. COMPARISON: None TECHNIQUE: Maldonado scale, color Doppler and spectral waveform analysis of the bilateral lower extremities deep venous system was performed. FINDINGS: Right Lower Extremity: Common Femoral: Fully compressible with normal spontaneous waveforms. Proximal Greater Saphenous: Fully compressible. Femoral: Fully compressible with normal spontaneous waveforms. Normal response to augmentation. Proximal Deep Femoral: Normal spontaneous waveforms. Popliteal: Fully compressible with normal spontaneous waveforms. Left Lower Extremity: Common Femoral: Fully compressible with normal spontaneous waveforms. Proximal Greater Saphenous: Fully compressible. Femoral: Fully compressible with normal spontaneous waveforms. Normal response to augmentation. Proximal Deep Femoral: Normal spontaneous waveforms. Popliteal: Fully compressible with normal spontaneous waveforms. Subcutaneous edema. IMPRESSION: No evidence of deep venous thrombosis above the bilateral calfs. Signed by: Dr. Angeles Ochoa M.D. on 01/10/2019 3:24 PM
--- NOTE | 2019-01-10 17:10 | Diagnostic Imaging Report ---
CT scan of the RIGHT HIP, WITHOUT intravenous contrast. TECHNIQUE: Standard departmental protocols were used. Sagittal and coronal reformatted images were obtained. HISTORY: Trauma. COMPARISON: None. FINDINGS: Bones: No acute displaced fracture or dislocation. Status post ORIF of remote fracture of the proximal right femur. Remote fractures of the bilateral inferior pubic rami. Joints: Degenerative changes of the lumbar spine. Soft tissues: Vascular calcifications. IMPRESSION: No acute displaced fracture. Signed by: Dr. Angeles Ochoa M.D. on 01/10/2019 5:07 PM
--- NOTE | 2019-01-10 17:24 | Diagnostic Imaging Report ---
CT scan of the left HIP, WITHOUT intravenous contrast. TECHNIQUE: Standard departmental protocols were used. Sagittal and coronal reformatted images were obtained. HISTORY: Trauma. COMPARISON: None. FINDINGS: Bones: No acute displaced fracture or dislocation. Nondisplaced fracture of the anterior column of the left acetabulum of uncertain age, with minimal periosteal reaction, also subacute to chronic. Mildly displaced fracture of the left inferior pubic ramus with some surrounding callus formation. Joints: Degenerative changes of the lumbar spine. Soft tissues: Vascular calcifications. Left SFA stent. Small fat-containing left inguinal hernia. IMPRESSION: Subacute or incompletely healed chronic fracture of the left inferior pubic ramus. Nondisplaced fracture of the anterior column of the left acetabulum also appears subacute. Signed by: Dr. Angeles Ochoa M.D. on 01/10/2019 5:21 PM
[2019-01-10] MEDS ORDERED: ONDANSETRON HCL INJ 2MG/ML 2ML 2 MG/ML VIAL IV PRN (18:00)
[2019-01-10] MEDS ORDERED: DEXTROSE 50% SYRINGE 50 ML IV PRN (18:00)
[2019-01-10] MEDS ORDERED: ACETAMINOPHEN/CODEINE 300MG - 30MG TAB PO PRN (18:00)
--- NOTE | 2019-01-10 18:45 | NUR ---
Report to SHAWN Denny
[2019-01-10] MEDS ORDERED: SODIUM CHLORIDE 0.9% 1000ML 1,000 ML ONE (18:58)
[2019-01-10] MEDS: SODIUM CHLORIDE 0.9% 1000ML 1,000 ML IV SCH (19:00)
--- NOTE | 2019-01-10 19:25 | NUR ---
Report to RN taking room 100
--- OUTSIDE RECORDS SUMMARY | 2019-01-10 19:27 | XMS REPORT | Clinical Summary ---
Author Author [facility] Organization [facility] Address Unknown Phone Unavailable Care Team Providers Care Exercise Equipment Repair Technician Name Role Phone Rosalba Florence MD PCP [...] Lot Implanted Type Area Manufactur er 06/12/2018 [id number] / / [id number] Spy Elite Single-Vial Spy Kit, Accessorie N/A: N/A [id number] - Implanted: Qty: 1 on 07/04/2016 by Suri Chan MD onal 03/11/2018 [id number] / / [id number] Device Vasclr Clsr Baln Cath 10ml Cardiovasc N/A: N/A CARDINAL Lkng Syr 6fr 7fr Mynxgrip [facility] [id number] Implants Implanted: 03/26/2016 (Quantity not on file) 04/25/2019 [id number] / / Catheter Paper Final Inspector Balloon Advance 14lp Surgical N/A: N/A COOK 2.5mm X 20cm X 170cm - [id number] Implants; PERIPHERAL Implanted: Qty: 1 on 07/04/2016 by Expanders; Suri Chan MD Extenders; ON Surgical Wires 12/09/2018 [id number] / / Catheter Paper Final Inspector Balloon Advance 14lp Surgical N/A: N/A COOK 2.5mm X 6cm X 170cm - [id number] Implants; PERIPHERAL Implanted: Qty: 1 on 07/04/2016 by Expanders; Suri Chan MD Extenders; ON Surgical Wires 11/29/2016 [id number] / / [id number] Stent Zilver Drug Eluted 6fr 7 X Surgical N/A: N/A COOK 100mm .035in - [id number] Stents PERIPHERAL Implanted: Qty: 1 on 03/26/2016 by Suri Chan MD ON 12/04/2016 [id number] / / [id number] Stent Zilver Drug Eluted 6fr 6 X Surgical N/A: N/A COOK 80mm 0.035in - [id number] Stents PERIPHERAL Implanted: Qty: 1 on 03/26/2016 by Suri Chan MD ON 12/20/2016 [id number] / / [id number] Stent Zilver Drug Eluted 6fr 7 X Surgical N/A: N/A COOK 40mm .035in - [id number] Stents PERIPHERAL Implanted: Qty: 1 on 03/26/2016 by Srui Chan MD ON 11/22/2016 [id number] / / [id number] Stent Zilver Drug Eluted 6fr 6 X Surgical N/A: N/A COOK 100mm .035in - [id number] Stents PERIPHERAL Implanted: 07/04/2016 (Quantity not INTERVENTI on file) ON 11/22/2016 [id number] / / [id number] Stent Zilver Drug Eluted 6fr 6 X Surgical N/A: N/A COOK 100mm .035in - [id number] Stents PERIPHERAL Implanted: 07/04/2016 (Quantity not INTERVENTI on file) ON 10/18/2020 [id number] / / [id number] Patch Vasclr Perph 0.8x8cm Vascular N/A: N/A CONSTANTINO Vascu-Guard - [id number] Graft BIOSCIENCE Implanted: 03/26/2016 (Quantity not on file) 08/11/2017 [id number] / / [id number] Matrix Wnd 2x2in Meshed 2lyr Strl - Vascular N/A: N/A INTEGRA [id number] Graft LIFESCIENC Implanted: Qty: 1 on 03/30/2016 by Edgar Echols DPM 10/18/2020 [id number] / / [id number] Patch Vasclr Perph 0.8x8cm Vascular N/A: N/A CONSTANTINO Vascu-Guard - [id number] Graft BIOSCIENCE Implanted: 07/11/2016 (Quantity not on file) Results Not on fileafter 01/09/2018 Insurance Type Payer Benefit Subscriber ID Effective Phone Address Plan / Dates Group [facility] MEDICARE AARP xxxxxxxxx 2016-P MEDICARE resent [facility] Advance Directives Patient has advance care planning documents on file. For more information, terese e contact: Derrek Leung [address] [place] [address]
--- OUTSIDE RECORDS SUMMARY | 2019-01-10 19:28 | XMS REPORT ---
[facility] Address Unknown Phone Unavailable Care Team Providers Care Seed Sales Manager Name Role Phone TOÑO CEBALLOS Unavailable Unavailable Problems This patient has no known problems. Allergies, Adverse Reactions, Alerts This patient has no known allergies or adverse reactions. Medications This patient has no known medications. Results Test Description Test Time Test Comments Text Results Atomic Results Result Comments CT HIP LEFT W/O CONTRAST-HOPD 2019-01-10 17:16:00 [place] [address] Patient Name: KURT HUERTAS MR #: [id number] : 1945 Age/Sex: 73/M Req #: [id number] Adm Physician: Ordered by: TOÑO CEBALLOS MD Report #: [id number] Location: [facility] Room/Bed: Procedure: [id number] HOPD/CT HIP LEFT W/O CONTRAST-HOPD Exam Date: 01/10/19 Exam Time: 1600 REPORT STATUS: Signed CT scan of the left HIP, WITHOUT intravenous contrast. TECHNIQUE: Standard departmental protocols were used. Sagittal and coronal reformatted images were obtained. HISTORY: Trauma. COMPARISON: None. FINDINGS: Bones: No acute displaced fracture or dislocation. Nondisplaced fracture of the anterior column of the left acetabulum of uncertain age, with minimal periosteal reaction, also subacute to chronic. Mildly displaced fracture of the left inferior pubic ramus with some surrounding callus formation. Joints: Degenerative changes of the lumbar spine. Soft tissues: Vascular calcifications. Left SFA stent. Small fat-containing left inguinal hernia. IMPRESSION: Subacute or incompletely healed chronic fracture of the left inferior pubic ramus. Nondisplaced fracture of the anterior column of the left acetabulum also appears subacute. Signed by: Dr. Angeles Orantes M.D. on 01/10/2019 5:21 PM Dictated By: RIAZ ORANTES MD, MD 20 Transcribed By: VALENTIN on 01/10/191720 COPY TO: TOÑO CEBALLOS MD CT HIP RT WITHOUT-HOPD 2019-01-10 16:18:00 [place] [address] Patient Name: KURT HUERTAS MR #: [id number] : 1945 Age/Sex: 73/M Req #: [id number] Adm Physician: Ordered by: TOÑO CEBALLOS MD Report #: [id number] Location: ED Room/Bed: Procedure: [id number] HOPD/CT HIP RT WITHOUT-HOPD Exam Date: 01/10/19 Exam Time: 1600 REPORT STATUS: Signed CT scan of the RIGHT HIP, WITHOUT intravenous contrast. TECHNIQUE: Standard departmental protocols were used. Sagittal and coronal reformatted images were obtained. HISTORY: Trauma. COMPARISON: None. FINDINGS: Bones: No acute displaced fracture or dislocation. Status post ORIF of remote fracture of the proximal right femur. Remote fractures of the bilateral inferior pubic rami. Joints: Degenerative changes of the lumbar spine. Soft tissues: Vascular calcifications. IMPRESSION: No acute displaced fracture. Signed by: Dr. Angeles Orantes M.D. on 01/10/2019 5:07 PM Dictated By: RIAZ ORANTES MD, MD 06 Transcribed By: VALENTIN on 01/10/191706 COPY TO: TOÑO CEBALLOS MD US VEIN BILATERAL-HOPD 2019-01-10 15:20:00 [place] [address] Patient Name: KURT HUERTAS MR #: [id number] : 1945 Age/Sex: 73/M Req #: [id number] Adm Physician: Ordered by: TOÑO CEBALLOS MD Report #: [id number] Location: [facility] Room/Bed: Procedure: [id number] HOPD/US VEIN BILATERAL-HOPD Exam Date: 01/10/19 Exam Time: 1333 REPORT STATUS: Signed EXAM: Bilateral Lower Extremity Duplex Ultrasound INDICATION: Bilateral lower extremity swelling. COMPARISON: None TECHNIQUE: Maldonado scale, color Doppler and spectral waveform analysis of the bilateral lower extremities deep venous system was performed. FINDINGS: Right Lower Extremity: Common Femoral: Fully compressible with normal spontaneous waveforms. Proximal Greater Saphenous: Fully compressible. Femoral: Fully compressible with normal spontaneous waveforms. Normal response to augmentation. Proximal Deep Femoral: Normal spontaneous waveforms. Popliteal: Fully compressible with normal spontaneous waveforms. Left Lower Extremity: Common Femoral: Fully compressible with normal spontaneous waveforms. Proximal Greater Saphenous: Fully compressible. Femoral: Fully compressible with normal spontaneous waveforms. Normal response to augmentation. Proximal Deep Femoral: Normal spontaneous waveforms. Popliteal: Fully compressible with normal spontaneous waveforms. Subcutaneous edema. IMPRESSION: No evidence of deep venous thrombosis above the bilateral calfs. Signed by: Dr. Angeles Orantes M.D. on 01/10/2019 3:24 PM Dictated By: RIAZ ORANTES MD, MD 1524 Transcribed By: VALENTIN on 01/10/191523 COPY TO: TOOÑ CEBALLOS MD HIP 2 VIEW BILAT W/PELVIS-HOPD 2019-01-10 14:15:00 [place] [address] Patient Name: KURT HUERTAS MR #: [id number] : 1945 Age/Sex: 73/M Req #: [id number] Adm Physician: Ordered by: TOÑO CEBALLOS MD Report #: [id number] Location: [facility] Room/Bed: Procedure: [id number] HOPD/HIP 2 VIEW BILAT W/PELVIS-HOPD Exam Date: 01/10/19 Exam Time: 1311 REPORT STATUS: Signed Right hip with AP pelvis 5 views HISTORY: Pain status post fall COMPARISON: None FINDINGS: No displaced fracture. Remote fracture of the femoral neck with callus formation extending lateral to the right acetabulum. Status post ORIF of the proximal right femur with hardware partially visualized. Basilar calcifications. Stent graft projected on the proximal left thigh. Degenerative changes of the L5-S1 level. Mild degenerative changes of the bilateral SI and hip joints. IMPRESSION: No acute displaced fracture. Signed by: Dr. Angeles Orantes M.D. on 01/10/2019 2:17 PM Dictated By: RIAZ ORANTES MD, MD 16 Transcribed By: VALENTIN on 01/10/191416 COPY TO: TOÑO CEBALLOS MD CXR 2 VIEW - HOPD 2019-01-10 13:52:00 [facility] [address] [place] [address] Patient Name: KURT HUERTAS MR #: [id number] : 1945 Age/Sex: 73/M Req #: [id number] Adm Physician: Ordered by: TOÑO CEBALLOS MD Report #: [id number] Location: [facility] Room/Bed: Procedure: [id number] HOPD/CXR 2 VIEW - HOPD Exam Date: 01/10/19 Exam Time: 131 REPORT STATUS: Signed EXAMINATION: Chest PA and lateral views INDICATI ON: Pain status post fall. 20190110 COMPARISON: None FINDINGS: TUBES and LINES: None. LUNGS: Lungs are well inflated. Oval density in the lower right hemithorax medially on the PA view may represent enlarged pulmonary artery. There is no evidence of pneumonia or pulmonary edema. PLEURA: No pleural effusion or pneumothorax. HEART AND MEDIASTINUM: The cardia silhouette is mildly enlarged. BONES AND SOFT TISSUES: Deformity of the lateral left mid to lower rib cage probably related to prior traumatic injury, however, acute injury cannot be excluded; correlate for focal tenderness. Osteopenia of the lower thoracic spine limits evaluation, however, there appears to be anterior wedging of T10 and T11. UPPER ABDOMEN: No free air under the diaphragm. IMPRESSION: Findings suggestive of prior right rib cage traumatic injury. Superimposed acute injury cannot be excluded due to overlapping structures. In addition, questionable anterior wedge deformity of lower thoracic vertebra. Signed by: Dr. Angeles Orantes M.D. on 01/10/2019 1:56 PM Dictated By: RIAZ ORANTES MD, MD 3032 Transcribed By: VALENTIN on 01/10/19 135 COPY TO: TOÑO CEBALLOS MD
[2019-01-10] MEDS ORDERED: FLOMAX0.4 MG PO (19:33)
[2019-01-10] MEDS ORDERED: ATORVASTATIN CA20 MG PO (19:33)
--- NOTE | 2019-01-10 19:40 | NUR ---
BP 201/97, AFTER INITALLY HAVING 202/74 AT TIME OF TRIAGE, CLONIDINE 0.1MG GIVEN PO PER DR. CEBALLOS, PT AND PT'S DAUGHTERS DENY ANY HISTORY OF ELEVATED BP READINGS. PT IS NON COMPLIANT FAR DIABETES IS CONCERNED BUT NEVER HAS HAD ISSUES WITH BP PER PT AND DAUGHTERS
[2019-01-10] MEDS ORDERED: CLONIDINE HCL 0.1 MG TAB ONE (19:44)
[2019-01-10] MEDS ORDERED: CLONIDINE HCL 0.1 MG TAB PO ONE (19:45)
[2019-01-10] MEDS ORDERED: CLONIDINE HCL 0.1 MG TAB PO STA (20:15)
[2019-01-10 20:35] VITALS: BP 156/68
[2019-01-10 22:51] VITALS: BP 156/68
[2019-01-11] VITALS (9 sets, daily range): BP systolic 151–208; BP diastolic 71–82
--- NOTE | 2019-01-11 00:44 | NUR ---
SPOKE TO DR. TREVIÑO REGARDING PT BP READING 180/90 MANUALLY. NEW ORDER RCV FOR HYDRALAZINE 5MG IV Q4H PRN.
[2019-01-11] MEDS: HYDRALAZINE HCL 20 MG/ML VIAL IV PRN ×3 (01:12→16:46)
[2019-01-11] MEDS: SODIUM CHLORIDE 0.9% 1000ML 1,000 ML IV SCH ×2 (01:55→09:55)
[2019-01-11 05:53] LABS: BASOPHILS % 0.6 % (0.0-1.0); EOSINOPHILS # (AUTO) 0.4 (0.0-0.4); HEMATOCRIT 27.6 % (38.2-49.6); HEMOGLOBIN 9.2 g/dL (14.0-18.0); LYMPHOCYTES # (AUTO) 0.9 (1.0-3.2); LYMPHOCYTES % 24.6 % (18.0-39.1); MEAN CORPUSCULAR HEMOGLOBIN 31.2 pg (28-32); MEAN CORPUSCULAR HGB CONC 33.3 g/dL (31-35); MEAN CORPUSCULAR VOLUME 93.6 fL (81-99); MONOCYTES # (AUTO) 0.4 (0.2-0.8); MONOCYTES % 12.3 % (4.4-11.3); NEUTROPHILS # (AUTO) 1.8 (2.1-6.9); NEUTROPHILS % 50.2 % (38.7-80.0); PLATELET COUNT 123 x10e3/uL (140-360); RED BLOOD COUNT 2.95 x10e6/uL (4.3-5.7)
[2019-01-11 06:18] LABS: ANION GAP 10.5 mmol/L (8-16); CALCIUM 8.7 mg/dL (8.4-10.2); CREATININE, SERUM 2.51 mg/dL (0.72-1.25); POTASSIUM 4.5 mmol/L (3.5-5.1)
--- NOTE | 2019-01-11 07:05 | NUR ---
PT SLEEPING IN BED COMFORTABLY PT IS IN NO S.S OF DISTRESS PT IS ON RA, NO SOB NOTED PT HAS A LEFT AC 22 G WITH NS AT 75 SITE IS CLEAN AND DRY LEGS ARE ELEVATED WITH PILLOWS DUE TO EDEMA IN LOWER EXTREMITIES WILL WAIT ON MD TREVIÑO TO ROUND FOR FURTHER ORDERS AT THIS TIME PT BED WHEELS AREA LOCKED, SIDE RAILSX2, CALL LIGHT IS WITHIN EASY REACH
[2019-01-11] MEDS: POLYETHYLENE GLYCOL 3350 17 GM PACK PO SCH (09:19)
--- NOTE | 2019-01-11 11:25 | NUR ---
SPOKE TO MD TREVIÑO REGARDING RENAL CX MD DOES NOT ROUND AT THIS HOSPITAL MD STATES HE SAW MD CHAVEZ LAST WEEK. MD TREVIÑO STATES HE WILL CALL MD TO CLARIFY THIS WITH HIM CALLED [facility] CX TO CELL PHONE TO NOTIFY OF CX AFTER ATTEMPTING ANSWERING SERVICE WITH NO SUCCESS NO ANSWER, UNABLE TO LEAVE VOICEMAIL AT THIS TIME
--- NOTE | 2019-01-11 11:32 | NUR ---
LEFT VOICEMAIL TO ANSWERING SERVICE FOR MD ESTRADA CALLING IN CX FOR CRF
--- NOTE | 2019-01-11 11:47 | History and Physical ---
CHIEF COMPLAINT: Fall with injury to the hip and thorax. HISTORY OF PRESENT ILLNESS: The patient is a 73-year-old man. He has a history of diabetes, hypertension, and peripheral vascular disease. About three weeks ago, he fell and bruised his left side. He has had difficulty walking since then. He came to the emergency department and was found to have subacute acetabular fracture on the left side as well as trauma to the left hemithorax. The patient also had an elevated creatinine of 2.51 along with elevated blood pressures and poor circulation in his lower extremities. PAST SURGICAL HISTORY: Status post amputation of the left toe. PAST MEDICAL HISTORY: 1. Diabetes. 2. Hypertension. 3. Peripheral vascular disease. SOCIAL HISTORY: The patient is a drinker. He quit smoking. ALLERGIES: THERE ARE NO KNOWN DRUG ALLERGIES. REVIEW OF SYSTEMS: There is no headache. He has no neck pain. He is not having any sore throat. He does not complain of any chest tenderness or pain on his left side. He denies any anterior chest pain. He has no difficulty breathing. He does have some pain in the left hip and some difficulty walking. He has no abdominal pain. There is no nausea or vomiting. PHYSICAL EXAMINATION: VITAL SIGNS: The patient is afebrile. The blood pressure is 151/71, saturation is 97% on room air. Pulse is 60 and the respiratory rate is 18. HEENT: Shows no facial swelling or erythema. The nasal mucosa is normal. The oropharynx is normal. LYMPHATIC: Shows no submandibular, cervical or supraclavicular adenopathy. CARDIAC: Reveals regular rate and rhythm with normal S1, S2. LUNGS: Auscultation of lungs reveals decreased breath sounds on the left base. There is no wheezing. ABDOMEN: Soft, nontender. There is no rebound or guarding. EXTREMITIES: Show no leg edema. There are poor pulses in both lower extremities. He is missing the great toe on the left side. He has pain with some motion of his hip. LABORATORY DATA: BUN to creatinine ratio is 27 to 2.5, and hemoglobin is 9.2. The platelet count is 123. White blood cell count is 3.5. RADIOGRAPHIC DATA: Chest x-ray shows a prior right-sided rib cage trauma. CT scan of the hip shows a nondisplaced subacute acetabular fracture. IMPRESSION: 1. Pancytopenia. 2. Thrombocytopenia. 3. Anemia secondary to chronic blood loss. 4. Nondisplaced acetabular fracture. 5. Acute on chronic renal failure. 6. Hypertension. PLAN: 1. The patient will have an orthopedic consult and physical therapy. 2. Evaluate peripheral vascular disease. 3. Nephrology consultation. 4. Ultrasound of the abdomen to evaluate for cirrhosis or liver disease, which may be leading to pancytopenia. 5. Thiamine. 6. Nutritional assessment. Quique Laurent MD [facility]/MODL /[id number]
--- NOTE | 2019-01-11 11:51 | NUR ---
SPOKE WITH MD MAHONEY COVERING FOR MD ESTRADA . NO ORDERS RECEIVED AT THIS TIME
[2019-01-11 12:20] LABS: BILIRUBIN,URINE NEGATIVE (NEGATIVE); CLARITY,URINE CLOUDY (CLEAR); KETONES,URINE NEGATIVE (NEGATIVE); LEUKOCYTE ESTERASE ,URINE TRACE (NEGATIVE); NITRITE,URINE NEGATIVE (NEGATIVE); PROTEIN,URINE DIPSTICK TRACE (NEGATIVE); URINE UROBILINOGEN 0.2 mg/dL (0.2 - 1)
[2019-01-11 12:26] LABS: COLOR,URINE YELLOW (YELLOW)
[2019-01-11] MEDS: THIAMINE HCL 100 MG TAB PO SCH (12:33)
[2019-01-11 12:43] LABS: BACTERIA,URINE FEW /HPF; EPITHELIAL CELLS,URINE FEW /LPF; RBC,URINE 0-5 /HPF (0-5)
--- NOTE | 2019-01-11 13:51 | NUR ---
SPOKE TO MD TREVIÑO REGARDING ELEVATED BP . PT BP READ 193/82 AT 1200, GAVE PRN HYDRALAZINE 5MG IV AFTER ONE HOUR OF ADMINISTRATION. PT BP ELEVATED TO 208/81 WITH A HR OF 63 NEW ORDERS RECEIVED
[2019-01-11] MEDS ORDERED: VALSARTAN 80 MG TAB PO NR ×2 (14:00→14:15)
--- NOTE | 2019-01-11 16:05 | NUR ---
placed pt npo for scheduled US tomorrow
--- NOTE | 2019-01-11 16:26 | NUR ---
PT needs full eval and treat order from MD to proceed with evaluation. Only NWB status order received from Dr. Peterson. Addendum: 01/11/19 at 1634 by Perla Phillips PT Amended: Links added.
--- NOTE | 2019-01-11 17:11 | NUR ---
no residual noted on peg feedings continued feedings at 70cc/hr Addendum: 01/11/19 at 1712 by iMlana Napoles RN wrong pt charting
--- NOTE | 2019-01-11 20:26 | Diagnostic Imaging Report ---
EXAM: CT Chest WITHOUT contrast 01/11/2019 10:58 AM INDICATION: ^fall with chest trauma ^20190111 ^1617 COMPARISON: Chest radiograph 01/10/2019 TECHNIQUE: Chest was scanned utilizing a multidetector helical scanner from the lung apex through the level of the adrenal glands without administration of IV contrast. Absence of intravenous contrast decreases sensitivity for detection of lymphadenopathy and vascular pathology. Coronal and sagittal reformations were obtained. Routine protocol was performed. IV CONTRAST: None COMPLICATIONS: None RADIATION DOSE: Total DLP: 514.9 mGy*cm Estimated effective dose: (DLP x 0.015 x size factor) mSv CTDIvol has been reviewed. It is below the limits set by the Radiation Protocol Committee (RPC). FINDINGS: LINES/ TUBES: None. LUNGS AND AIRWAYS: Subsegmental atelectasis in both lung bases. Subpleural reticulation of the lungs may reflect superimposed chronic infection, aspiration, or interstitial lung disease. Central peribronchial wall thickening without significant bronchiectasis suggestive of airway inflammation. PLEURA: Small left pleural effusion. No pneumothorax. HEART AND MEDIASTINUM: The thyroid gland is normal. No mediastinal, hilar or axillary lymphadenopathy. Mild cardiomegaly. Trace pericardial effusion. Moderate calcifications of the aortic valve and mitral annulus. Minimal calcifications of the coronary arteries. The thoracic aorta is tortuous but normal in size and associated with mild scattered atherosclerotic calcifications. The main pulmonary artery normal in size, measuring 2.5 cm in diameter. UPPER ABDOMEN: Cholelithiasis. Bilateral renal cortical atrophy. Calcified splenic granulomas. BONES: Chronic mild posttraumatic deformity of the posterior left third, fourth, and 9 to 12 and right posterior 7-11 ribs with associated with callus formation. Age-indeterminate mildly displaced fracture deformity of T10 vertebral body with minimal retropulsion of the posterior and inferior endplate. SOFT TISSUES: Unremarkable. IMPRESSION: 1. Remote posttraumatic deformity of multiple bilateral ribs. 2. Moderate age-indeterminate compression deformity of T10 vertebral body may be acute/subacute. 3. Small left pleural effusion. 4. Subsegmental atelectasis in both lung bases with chronic changes of the lungs may reflect chronic aspiration, infection, or focal interstitial lung disease. Signed by: Dr. Nicole Ricardo M.D. on 01/11/2019 8:23 PM
[2019-01-11 20:43] LABS: % IRON SATURATION 16 % (15-50); IRON 42 ug/dL (65-175); TOTAL IRON BINDING CAPACITY 262 ug/dL (261-478); TRANSFERRIN 187 mg/dL (174-364)
[2019-01-11 20:53] LABS: PHOSPHORUS 3.6 MG/DL (2.3-4.7)
[2019-01-11] MEDS ORDERED: ATORVASTATIN 20 MG TAB PO SCH (21:00)
[2019-01-11] MEDS ORDERED: ZOLPIDEM TARTRATE 5 MG TAB PO PRN (21:00)
--- NOTE | 2019-01-11 21:15 | NUR ---
DR. MASSEY DOING ROUNDS. NEW ORDER RCV FOR PHYSICAL THERAPY EVALUATION. PATIENT ON STRICT NON WEIGHT BEARING LEFT LOWER EXTREMITY.
[2019-01-11 21:53] LABS: CREATININE,URINE RANDOM 58.32 mg/dL (63-166)
[2019-01-11 22:54] LABS: SODIUM,URINE 143 mmol/L
[2019-01-12] VITALS (8 sets, daily range): BP systolic 124–186; BP diastolic 59–86
[2019-01-12] MEDS: HYDRALAZINE HCL 20 MG/ML VIAL IV PRN ×2 (00:47→05:38)
--- NOTE | 2019-01-12 01:10 | Consultation ---
DATE OF CONSULTATION: 01/11/2019 REASON FOR CONSULTATION: Increased BUN and creatinine. HISTORY OF PRESENT ILLNESS: A 73-year-old man with history of type 2 diabetes mellitus, hypertension, peripheral vascular disease, fell 3 weeks ago, but came in today to the emergency room complaining of pain, was found to have subacute acetabular fracture on the left side and a trauma to his left hemithorax. PAST SURGICAL HISTORY: Include: 1. Amputation of left toe. 2. Right hip surgery. 3. Leg stents, left SFA stent. 4. Appendectomy. PAST MEDICAL HISTORY: 1. Type 2 diabetes mellitus. 2. Hypertension. 3. Peripheral vascular disease. 4. Possible chronic kidney disease. He was seen by facilities painter when admitted before. 5. BPH. SOCIAL HISTORY: Quit smoking. Positive alcohol. ALLERGIES: NO KNOWN DRUG ALLERGIES. REVIEW OF SYSTEMS: Denies any nausea, vomiting, constipation, diarrhea. Denies any shortness of breath. Denies any chest pain. Denies any blood in the stool or blood in the urine. Denies any sensory loss, motor loss, skin changes. Denies any dysuria, hematuria, increased frequency. Denies any enlarged lymph node. Denies any rash, depression, schizoaffective disorder. Basically otherwise is negative. CURRENT MEDICATIONS: Include hydralazine, thiamine, MiraLax, valsartan, zolpidem, tamsulosin, Lipitor, Zofran, and dextrose. PHYSICAL EXAMINATION: GENERAL: Alert and following commands. HEENT: Pupils are equal and reactive to light and accommodation. NECK: No JVD. No bruits. LUNGS: No rhonchi. No rales. HEART: Regular rate and rhythm. No S3. No S4. ABDOMEN: Nontender and nondistended. No hepatomegaly or splenomegaly. EXTREMITIES: No clubbing. No cyanosis. No edema. VITAL SIGNS: Blood pressure 208/81. LABORATORY DATA: Sodium 138, potassium 4.5, chloride 113, CO2 of 19, creatinine 2.5. Urinalysis; trace protein, trace leukocyte esterase. White count 3.4, hemoglobin 9.2, platelets 123. Chest CT pending. Ultrasound of lower extremity pending. Chest x-ray demonstrated suggestive by rib cage traumatic injury, superimposed on acute injury cannot be excluded. Head CT demonstrated subacute or incompletely healed chronic fracture of the left inferior pubic ramus, nondisplaced fracture of anterior column of left acetabulum also appears subacute. Vascular calcification, left SFA stent, small fat containing left inguinal hernia. Extremity ultrasound, no DVT. ASSESSMENT AND PLAN: This is a 73-year-old diabetic, hypertensive with peripheral vascular disease, who is admitted with left fracture of his acetabulum. Currently with increased BUN and creatinine, metabolic acidosis, anemia. These are most likely signs of chronic kidney disease. So, we would be checking his phosphorus and we will check a renal ultrasound and we will also work him for glomerulonephritis since the patient state that he never had this before, but I do think that the patient has chronic kidney disease secondary to diabetes. Also, the patient is anemic and that can be secondary to his chronic kidney disease, secondary to fall, secondary to blood in the stool or to multiple myeloma since the patient has increased creatinine. So, we will check his stool for blood. We will also check iron studies and we will check urine protein electrophoresis. The patient will also undergo cardiac evaluation prior to surgery. So in short, this is most likely chronic kidney disease secondary to diabetes, but need to workup for other reasons and rule out other renal issues including acute, multiple myeloma, hydronephrosis, prerenal status, but I think it is mostly chronic kidney disease secondary to diabetes. Also, we will need to improve his blood pressure control and we might need to increase his medications, so we will monitor him for the next 24 hours before adding extra medications. Amrik Garrido MD MA/BILL /[id number]
--- NOTE | 2019-01-12 01:20 | Consultation ---
DATE OF CONSULTATION: 01/11/2019 Cardiology Consultation Thank you, Dr. Laurent, for this consultation. The patient is seen, examined, and reviewed the chart. The patient came with a history of fall about couple of weeks ago. He has a nondisplaced left acetabular fracture. DIAGNOSES: 1. Nondisplaced fracture of left acetabulum. 2. Hypertension. 3. Type 2 diabetes mellitus. 4. Renal failure. 5. Peripheral artery disease, status post stent to the left SFA. 6. Anemia. HISTORY OF PRESENT ILLNESS: Mr. Noah Patricia is a pleasant 73-year-old gentleman, admitted for above symptom and the patient being investigated at this time. I have been asked to evaluate the patient for the cardiac and vascular point of view. The patient denies any history of myocardial infarctions. Occasionally, he has shortness of breath. No significant symptoms of congestive heart failure. He does have a history of type 2 diabetes mellitus and he has a history of hypertension. According to him what all he can remember, he had some surgery done on the left foot, he has left toe amputation, and also his x-rays show that he has a left SFA stent. Bilateral duplex scan performed, ordered by Dr. Quique Laurent, shows bilateral leg artery blockages, anterior tibial and posterior tibial 100% occluded, and the patient at this time also complains of pain. Intermittently, he used to take some blood thinner, he is not taking at this time. The patient denies any stroke. The patient does not recall any of the surgery except right hip fracture he had surgery done. He lives alone with brother, but daughter knows most of his condition. At this time, the patient cardiac-kowalski is quite stable and the patient's echocardiogram showed ejection fraction about 50% to 55% without any valvular disease except mild MR. The patient at this time is going to be seen by Orthopedic surgeon for left hip fracture. As far as the peripheral artery disease is concerned, I will wait for the Orthopedic surgeon to see the patient. At this time, the patient also has renal failure, so we will wait for arteriogram and also possible for any coronary intervention, we had to give a few more days, probably if we are pursuing with the idea of doing peripheral arteriogram, we need to get a Renal consultation as at this time the patient's renal function is abnormal and it shows his GFR is about 25 mL/minute, and also the patient has 9.5 g percent. Ultimately, we need to do peripheral arteriogram, but I will wait for 24 to 48 hours to see what the plan for the left hip at this time, and we will continue to follow the patient. I thank, Dr. Laurent, for this consultation, and the patient's on vital signs, blood pressure is stable except a little on the high side. The patient is on multiple medication, which we will continue. The patient is planning to undergo surgery. We will control the blood pressure. Otherwise, we will follow and slowly bring down the blood pressure because of significant peripheral artery disease. MD TENZIN Gray/BILL /[id number]
[2019-01-12 02:00] LABS: EOSINOPHIL SMEAR,URINE NONE SEEN (NONE SEEN)
[2019-01-12 06:07] LABS: INR 1.09; PROTHROMBIN TIME 14.6 seconds (11.9-14.5)
[2019-01-12 06:08] LABS: BASOPHILS # (AUTO) 0.1 (0.0-0.1); BASOPHILS % 0.9 % (0.0-1.0); EOSINOPHILS # (AUTO) 0.5 (0.0-0.4); EOSINOPHILS % 9.8 % (0.0-6.0); HEMATOCRIT 29.2 % (38.2-49.6); HEMOGLOBIN 9.9 g/dL (14.0-18.0); LYMPHOCYTES # (AUTO) 1.2 (1.0-3.2); LYMPHOCYTES % 22.9 % (18.0-39.1); MEAN CORPUSCULAR HEMOGLOBIN 31.6 pg (28-32); MEAN CORPUSCULAR HGB CONC 33.9 g/dL (31-35); MEAN CORPUSCULAR VOLUME 93.3 fL (81-99); MONOCYTES # (AUTO) 0.5 (0.2-0.8); MONOCYTES % 10.2 % (4.4-11.3); PARTIAL THROMBOPLASTIN TIME 36.4 seconds (23.8-35.5); PLATELET COUNT 143 x10e3/uL (140-360); RED BLOOD COUNT 3.13 x10e6/uL (4.3-5.7); RED CELL DISTRIBUTION WIDTH 13.2 % (11.7-14.4)
[2019-01-12 06:24] LABS: ALBUMIN 3.2 g/dL (3.5-5.0); ANION GAP 10.2 mmol/L (8-16); CALCIUM 8.9 mg/dL (8.4-10.2); CREATININE, SERUM 2.22 mg/dL (0.72-1.25); POTASSIUM 5.2 mmol/L (3.5-5.1)
[2019-01-12] MEDS: TAMSULOSIN HCL 0.4 MG CAP PO SCH (08:40)
[2019-01-12] MEDS: THIAMINE HCL 100 MG TAB PO SCH (08:40)
[2019-01-12] MEDS ORDERED: VALSARTAN 80 MG TAB PO SCH ×2 (09:00→17:00)
[2019-01-12] MEDS: POLYETHYLENE GLYCOL 3350 17 GM PACK PO SCH (09:00)
--- NOTE | 2019-01-12 10:11 | Diagnostic Imaging Report ---
EXAM: US ABDOMEN COMPLETE INDICATION: Evaluate for liver disease. COMPARISON: None TECHNIQUE: Transverse and longitudinal foster scale and color doppler sonographic images of the abdomen were obtained. FINDINGS: Somewhat limited examination due to overlying gas. LIVER Measures 14.3 cm in the right midclavicular line. Normal echogenicity of the liver with normal contour, no masses. SPLEEN 9.8 cm in maximum diameter. Normal echogenicity, no masses. GALLBLADDER Cholelithiasis. No gallbladder wall thickening, distension, or pericholecystic fluid. Negative reported sonographic Jordan's sign. BILE DUCTS No intra nor extra-hepatic biliary dilation. Common bile duct measures 0.4 cm PANCREAS: Obscured by overlying bowel gas. RIGHT KIDNEY: 9.4 cm Echogenicity: Increased echogenicity. Collecting System: No hydronephrosis Stones: None Cyst/Mass: None LEFT KIDNEY: 8.2 cm Echogenicity: Increased echogenicity. Collecting System: No hydronephrosis Stones: None Cyst/Mass: None VESSELS: Aorta: Obscured by overlying bowel gas. Inferior Vena Cava: Obscured by overlying bowel gas. Main Portal Vein: 0.7 cm, normal size with hepatopetal flow. FREE FLUID: None IMPRESSION: Somewhat limited study due to overlying bowel gas. Unremarkable sonographic appearance of the liver. Cholelithiasis without sonographic evidence of cholecystitis. Increased renal echogenicity may represent medical renal disease. Signed by: Dr. Hari Holman MD on 01/12/2019 10:07 AM
--- NOTE | 2019-01-12 10:36 | NUR ---
ABDOMINAL ULTRASOUND COMPLETED, SPOKE WITH MD Edyta TREVIÑO FOR DIET ORDERS
--- NOTE | 2019-01-12 12:36 | NUR ---
PT FAMILY SIGNED CHOICE FOR [facility] FILED IN IN CHART AND FAXED CLINICALS TO FACILITY.
--- NOTE | 2019-01-12 13:46 | NUR ---
EDUCATED ABOUT IMM, SIGNED, FILED IN CHART, WITH COPY LEFT WITH FAMILY AT BEDSIDE
--- NOTE | 2019-01-12 14:13 | Progress Note ---
DATE: 01/12/2019 SUBJECTIVE: The patient had a low-grade temperature to 99.5. He still has some mild hip pain. He saw Physical therapy. He was seen by Nephrology and Cardiology. PHYSICAL EXAMINATION: VITAL SIGNS: The patient is febrile. Blood pressure is 126/59. CARDIAC: Reveals regular rate and rhythm with normal S1 and S2. LUNGS: Auscultation of lungs reveals decreased breath sounds at bases. There is no wheezing. ABDOMEN: Soft, nontender. There is no rebound or guarding. EXTREMITIES: Show no leg edema or calf tenderness. There is no cyanosis or clubbing. SKIN: Shows no rashes. NEUROLOGIC: Shows no focal abnormalities. IMPRESSION: 1. Acetabular fracture. 2. Thrombocytopenia. 3. Acute on chronic renal failure. 4. Severe peripheral vascular disease. PLAN: 1. Monitor patient because of mildly increased temperature to 99.5. Repeat CBC and urinalysis. 2. Continue to monitor renal function. 3. Physical therapy. MD RAYMUNDO Fermin/BILL /[id number]
--- NOTE | 2019-01-12 15:56 | NUR ---
VOICES NO C/O AT THIS TIME, CALL LIGHT WITHIN REACH
--- NOTE | 2019-01-12 16:13 | Progress Note ---
DATE: 01/12/2019 Cardiology Progress Note SUBJECTIVE: The patient is seen in the room. The patient is awake, alert. The patient does not have any major cardiac symptoms. The patient came in with left hip fracture. Orthopedic surgeon is seeing this patient. Cardiac-kowalski, the patient has no acute congestive heart failure and the patient has peripheral vascular disease. He has a left stent put in the left SFA and I discussed with the family, who was at bedside. He has type 2 diabetes mellitus, renal failure, hypertension, and anemia. At this time cardiac-kowalski, the patient to continue present medications. If he has significant pain in the left leg, probably we can do further evaluation, but he does have renal failure also. Any how at this time, we will do conservative treatment for left leg vascular issues to continue and if he does have significant issues like ischemia, probably had to think about doing arteriogram, but there is always a possibility his renal function may deteriorate that I will discuss with family members at appropriate time. The patient's BUN is 25, creatinine 2.22 and GFR is 29. At this time there is no change in cardiac medications. Any time at discretion of the primary physician and orthopedic physician, the patient may be discharged to go to skilled care. Cardiac-kowalski, the patient is stable. Continue present medications. MD TENZIN Gray/MODL /[id number]
[2019-01-12] MEDS ORDERED: ENOXAPARIN SOD INJ 40 MG/0.4 ML SYR SC SCH (17:00)
[2019-01-12] MEDS ORDERED: ENOXAPARIN 30 MG/0.3 ML SYR SC SCH (17:00)
[2019-01-12] MEDS ORDERED: SOD POLYSTYRENE SULFONATE SUSP 15 GM/60 ML BTL PO ONE (17:15)
--- NOTE | 2019-01-12 19:00 | NUR ---
RECEIVED PATIENT IN BEDSIDE REPORT. PATIENT IS A&OX3. L AC 22G IV IS ASYMPTOMATIC AND INTACT. NO PAIN REPORTED AT THIS TIME. NO S&S OF DISTRESS NOTED AT THIS TIME. SCDS ON AND ALTERNATING PRESSURE MATTRESS ACTIVE. BED LOCKED IN LOWEST POSITION, SIDE RAILS UPX2, CALL LIGHT INR EACH. REMINDED PATIENT TO CALL FOR ASSISTANCE IF HE NEEDS TO GET UP. PATIENT VERBALIZED UNDERSTANDING.
[2019-01-12] MEDS ORDERED: ATORVASTATIN 40 MG TAB PO SCH (21:00)
[2019-01-12] MEDS: VALSARTAN 80 MG TAB PO SCH (21:05)
[2019-01-13] VITALS: BP_SYST 150; BP_SYST 158; BP_DIAS 68; BP_DIAS 72
[2019-01-13 06:15] LABS: BASOPHILS % 0.7 % (0.0-1.0); EOSINOPHILS # (AUTO) 0.5 (0.0-0.4); EOSINOPHILS % 10.1 % (0.0-6.0); HEMATOCRIT 26.8 % (38.2-49.6); HEMOGLOBIN 8.7 g/dL (14.0-18.0); LYMPHOCYTES # (AUTO) 1.3 (1.0-3.2); LYMPHOCYTES % 29.2 % (18.0-39.1); MEAN CORPUSCULAR HEMOGLOBIN 30.4 pg (28-32); MEAN CORPUSCULAR HGB CONC 32.5 g/dL (31-35); MEAN CORPUSCULAR VOLUME 93.7 fL (81-99); MONOCYTES # (AUTO) 0.5 (0.2-0.8); MONOCYTES % 11.2 % (4.4-11.3); NEUTROPHILS # (AUTO) 2.2 (2.1-6.9); NEUTROPHILS % 48.6 % (38.7-80.0); PLATELET COUNT 130 x10e3/uL (140-360); RED BLOOD COUNT 2.86 x10e6/uL (4.3-5.7); RED CELL DISTRIBUTION WIDTH 13.2 % (11.7-14.4)
--- NOTE | 2019-01-13 07:00 | NUR ---
RECEIVED AM REPORT FORM NURSE. PT IS AWAKE IN BED, NO S/S OF DISTRESS. CALL LIGHT WITHIN REACH, SIDE RAILS UP, BED IN LOWEST POSITION.
[2019-01-13] MEDS ORDERED: FERROUS SULFATE 325 MG TAB PO SCH (08:00)
[2019-01-13] MEDS: TAMSULOSIN HCL 0.4 MG CAP PO SCH (08:47)
[2019-01-13 08:48] VITALS: BP 150/77
[2019-01-13] MEDS: THIAMINE HCL 100 MG TAB PO SCH (08:48)
[2019-01-13] MEDS: VALSARTAN 80 MG TAB PO SCH (08:48)
[2019-01-13] MEDS: POLYETHYLENE GLYCOL 3350 17 GM PACK PO SCH (08:50)
--- NOTE | 2019-01-13 08:51 | NUR ---
PT HAS [facility] SCHEDULED FOR 0900. PT STATES THAT HE HAS DIARRHEA AND REFUSED TO TAKE MORNING DOSE
[2019-01-13 08:52] VITALS: BP 150/77
[2019-01-13 12:24] VITALS: BP 163/81
--- NOTE | 2019-01-14 04:06 | Discharge Summary ---
DISCHARGE DIAGNOSES: 1. Nondisplaced acetabular fracture. 2. Acute on chronic renal failure. 3. Severe peripheral vascular disease. 4. Thrombocytopenia. 5. Anemia, unspecified. CONSULTING PHYSICIANS: 1. Dr. Pope of Orthopedics. 2. Dr. Muñoz of Cardiology. RADIOGRAPHIC STUDIES: Ultrasound of the abdomen showed normal sonographic appearance of the liver. There was some cholelithiasis. There was some echogenicity in the kidneys suggestive of medical renal disease. CT scan of the chest showed posttraumatic deformity of the ribs bilaterally. There was an old deformity of T10 and there is subsegmental atelectasis at the lung bases. CT scan of the hip showed incompletely healed fracture of the left inferior pubic ramus as well as a nondisplaced fracture in the anterior column of the left acetabulum. HISTORY OF PRESENT ILLNESS: The patient is a 73-year-old man. He has a history of hypertension, diabetes and peripheral vascular disease. He fell about three weeks prior to admission. He complained of pain on his left side. He had difficulty walking. HOSPITAL COURSE: The patient was evaluated in the ER and original venous duplex of his legs was negative. A subsequent x-ray and CT scan of the hip showed a nondisplaced acetabular fracture. The patient was seen by Orthopedics. They recommended bed rest with DVT prophylaxis and physical therapy. They did not believe operative intervention was required. The patient had severe peripheral vascular disease on examination. He had arterial studies that confirmed severe peripheral vascular disease. He was seen by Cardiology, but could not undergo any peripheral interventions because of his elevated creatinine. The patient received IV fluids. His creatinine improved, but remained elevated above 2. He also had some anemia and thrombocytopenia, which appears to be his baseline. DISPOSITION: The patient will be [facility]. MD RAYMUNDO Fermin/BILL /[id number]
[2019-01-14 17:10] LABS: ALPHA 2 GLOBULIN URINE PEP 15.9 % (.)
== END 2019-01-13 14:35 ==
LOC: FSED 11:57 → ERHOLD 19:24 → MED/SURG 20:36
PROVIDERS: ADMIT Internal Medicine Critical Care Medicine; ATTEND Internal Medicine Critical Care Medicine
DX: S32.592A Other specified fracture of left pubis, initial encounter for closed fracture (principal); S32.432A Displaced fracture of anterior column [iliopubic] of left acetabulum, initial encounter for closed fracture; I10 Essential (primary) hypertension; E11.9 Type 2 diabetes mellitus without complications; Z95.820 Peripheral vascular angioplasty status with implants and grafts; N40.0 Benign prostatic hyperplasia without lower urinary tract symptoms; Z89.412 Acquired absence of left great toe; Z87.891 Personal history of nicotine dependence; Z91.14 Patient's other noncompliance with medication regimen; D61.818 Other pancytopenia; D69.6 Thrombocytopenia, unspecified; D50.0 Iron deficiency anemia secondary to blood loss (chronic); N17.9 Acute kidney failure, unspecified; E87.2 Acidosis; E87.5 Hyperkalemia
CPT/HCPCS: 36415 ×4; 71046; 71250; 73521; 73700 ×2; 76700; 80048 ×2; 80053; 80076; 81001; 81015; 82553; 82570; 82948 ×4; 83540; 83880; 83970; 84100; 84156; 84166; 84300; 84466; 84484; 84550; 85025 ×4; 85610; 85730; 86021; 86160 ×2; 86431; 87340; 93005; 93306; 93925; 93970 ×2; 97116; 97162; 97530; 99284; G0378 ×4; J0360 ×2; J1650; J2405; J3411 ×3; J7030